=== PATIENT | female | born 1980 | race Caucasian/White ===

== ENCOUNTER 2024-12-01 03:00 | Emergency (ER) | payer MEDICAID, SELFPAY ==
--- NOTE | ~2024-12-01 | XR_ITS ---
CLINICAL HISTORY: pain, atraumatic Exam: AP, Grashey, and scapular Y-views of the right shoulder. Comparison: None provided. Findings: Bony alignment is anatomic without acute fracture, dislocation, or separation. Glenohumeral joint is well-maintained. Likely unfused os acromiale with mild degenerative change of the AC joint. Calcifications measuring up to 6 x 3 mm in size are seen adjacent to the greater tuberosity, likely within the distal rotator cuff. Impression: 1. Calcific tendinitis of the distal rotator cuff. 2. 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 This document has been electronically signed by: Odilon Carmona MD on 12/01/2024 05:40:52
[2024-12-01 03:07] VITALS: BP 129/81; PULSE 68; RESP 20; TEMP 36.7; O2SAT 94; BMI 40.4
--- NOTE | 2024-12-01 04:47 | ECG_ITS ---
Test Reason : SHOULDER PAIN Blood Pressure : */* mmHG Vent. Rate : 58 BPM Atrial Rate : 58 BPM P-R Int : 142 ms QRS Dur : 82 ms QT Int : 426 ms P-R-T Axes : 37 19 24 degrees QTcB Int : 418 ms Sinus bradycardia Otherwise normal ECG No previous ECGs available Referred By: Debbie Granado Electronically Signed By: Guillaume Zeng
--- NOTE | 2024-12-01 05:44 | ED_ITS ---
HPI - Extremity Problem General Chief complaint: Extremity Problem Stated complaint: Shoulder Pain Time Seen by Provider: 12/01/24 03:52 Source: patient and trouble dispatcher Mode of arrival: ambulatory Limitations: language barrier History of Present Illness ED Provider: Dr. Debbie Granado HPI Narrative: 44-year-old female with no significant past medical history presenting after developing right shoulder pain radiating to her right elbow ongoing for the last several days. No reported injury or direct trauma. Had been feeling well prior to this. Denies associated fevers, numbness/tingling/weakness of the hand, skin changes, neck pain, chest pain, difficulty breathing, abdominal pain, nausea or vomiting. Admits that she has had to have shoulder surgery on the other arm previously. No pain in that extremity. Related Data Previous Rx's ?Medication ?Instructions ?Recorded cyclobenzaprine 10 mg tablet 10 mg PO TID #10 tabs 04/15 ibuprofen 600 mg tablet 600 mg PO Q6H PRN fever or p ain 12/01/24 #30 tabs Allergies Allergy/AdvReac Type Severity Reaction Status Date / Time seafood Allergy Anaphylaxis Verified 12/01/24 03:08 acetaminophen (From Percocet) AdvReac Itching Verified 12/01/24 03:08 oxycodone (From Percocet) AdvReac Itching Verified 12/01/24 03:08 Review of Systems Review of Systems: As per HPI, full review of systems performed and negative but for the above ment ioned pertinent positives and negatives. [facility] Past Medical History Attestation statement: The following information was validated with the patient. [facility] Narrative: Patient denies Social History Social History Smoked in Last 30 Days: No Use of substances other than those prescribed or required for medical reasons: No Advance Directives: No Advance Directives Information Provided: Yes Patient : No Physical Exam Vital Signs: Vital Signs: Last Vital Signs Temp 98.1 F 12/01/24 03:07 Pulse 68 12/01/24 03:07 Resp 20 12/01/24 03:07 BP 129/81 12/01/24 03:07 Pulse Ox 94 12/01/24 03:07 O2 Del Method Room Air 12/01/24 03:07 BMI result Body Mass Index 40.4 GENERAL: Well-Appearing, conversant, no acute distress. SKIN: Normal skin color for ethnicity, no rashes noted. HEENT: Normocephalic, atraumatic, no stridor, EOMI. CHEST: Heart regular rate and rhythm, no murmurs, symmetric chest rise and fall. PULMONARY: Clear to auscultation bilaterally, no labored breathing, no wheezes/rhales/rhonchi. ABDOMINAL: Soft, nondistended, nontender, positive bowel sounds in all quadrants. : Deferred. MUSCULOSKELETAL: Normal tone, limited range of motion in the right upper extremity secondary to pain at the proximal right arm, neurovascularly intact distally, full function of the radial, median and ulnar nerves of the right hand, point tender overlying the bursa in the right shoulder, no deformities, no peripheral edema. NEURO: Alert and oriented x3, CN II through XII intact, equal strength and sensation bilateral upper and lower extremities, no focal neurologic deficits. PSYCHIATRIC: Normal affect, fluid speech, good eye contact and appropriate del anor. Medications Administered Discontinued Medications Generic Name Dose Route Start Last Admin Trade Name Freq PRN Reason Stop Dose Admin Diazepam 5 mg 12/01/24 04:47 12/01/24 05:28 Diazepam 5 Mg Tablet PO 12/01/24 04:48 5 mg ONCE ONE Administration Ketorolac Tromethamine 30 mg 12/01/24 04:47 12/01/24 05:28 Ketorolac Tromethamine 30 Mg/Ml Vial IM 12/01/24 04:48 30 mg ONCE ONE Administration Medical Decision Making Medical Decision Making MDM Narrative: Patient presents today with atraumatic right shoulder pain. Differential diagnosis includes nerve pain such as radiculopathy, fracture, soft tissue contusion, ligamentous injury, tendon injury, infection, laceration, among others. Patient is neurovascularly intact upon arrival to the emergency department. Based on physical exam, appropriate imaging was ordered. Differential Diagnosis Differential Diagnoses: The differential diagnosis associated with the presentation includes (As above) Independent Interpretation I performed an independent interpretation of an: EKG Interpretation: My independent interpretation of the ECG reveals normal sinus bradycardia with rate of 58, normal axis, normal intervals, no ST elevations or depressions to suggest ischemic changes, no previous for comparison.. Radiology Impression Discussion of test interpretation with radiology: I have reviewed the radiologist's reading. Radiologist Impression: Exam: AP, Grashey, and scapular Y-views of the right shoulder. Comparison: None provided. Findings: Bony alignment is anatomic without acute fracture, dislocation, or separation. Glenohumeral joint is well-maintained. Likely unfused os acromiale with mild degenerative change of the AC joint. Calcifications measuring up to 6 x 3 mm in size are seen adjacent to the greater tuberosity, likely within the distal rotator cuff. Impression: 1. Calcific tendinitis of the distal rotator cuff. 2. 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 This document has been electronically signed by: Odilon Carmona MD on 12/01/2024 05:40:52 Independent Historian Clinical information obtained from an independent historian. History obtained from or confirmed by: Spouse Prescription Management I considered prescription management with: Pain Medication Discharge Plan Discharge Clinical Impression: Calcific tendinitis of right shoulder, Acute pain of right shoulder Patient Disposition: Home, Self-Care Instructions: Calcific Tendinitis (ED) Additional Instructions: Use muscle relaxers for muscle spasm and cramping. Use Motrin for inflammation. Alternatively, you may use ice to keep inflammation down for the next couple of days. Return to the ER with any new or worsening symptoms including: Worsening pain, fevers greater than 100?, redness that tracks up your skin, inability to tolerate food or drink, any new symptom that concerns you. Call 911 with any medical emergency. Prescriptions: New cyclobenzaprine 10 mg tablet 10 mg PO TID Qty: 10 0RF ibuprofen 600 mg tablet 600 mg PO Q6H PRN (Reason: fever or pain) Qty: 30 0RF Print Language: Brazilian
[2024-12-01 06:06] VITALS: BP 126/70; PULSE 61; RESP 16; TEMP 36.7; O2SAT 98
[2024-12-01 06:12] VITALS: BP 126/70; PULSE 61; RESP 16; TEMP 36.7; O2SAT 98
== END 2024-12-01 06:13 | disposition home or self-care (01) ==
PROVIDERS: Emergency Provider Emergency Medicine
DX: M75.31 Calcific tendinitis of right shoulder (principal); M25.511 Pain in right shoulder
CPT/HCPCS: 73030; 93005; 96372; 99284; 99285; J1885

== ENCOUNTER → 2024-12-01 04:47 | Outpatient (BNV) | payer MEDICAID, SELFPAY | PROVIDERS: Emergency Provider Emergency Medicine; Visit Provider Radiology Diagnostic Radiology | DX: M19.011 Primary osteoarthritis, right shoulder (principal) | CPT/HCPCS: 73030 ==

== ENCOUNTER → 2024-12-01 04:47 | Outpatient (BNV) | payer MEDICAID, SELFPAY | PROVIDERS: Emergency Provider Emergency Medicine; Visit Provider Internal Medicine Cardiovascular Disease | DX: R00.1 Bradycardia, unspecified (principal) | CPT/HCPCS: 93010 ==

== ENCOUNTER 2025-02-02 08:07 | Outpatient (REF) | payer MEDICAID, SELFPAY ==
[2025-02-02 11:31] LABS: MANUAL DIFF FLAG NO
[2025-02-02 11:58] LABS: Hematocrit 41.9 % (37.0-47.0); Hemoglobin 13.7 g/dl (12.0-16.0); Imm Gran Abs Auto 0.04 X10*3/uL (0.00-0.03); Imm Gran Pct Auto 0.4 % (0.0-0.4); Lymphocytes Absolute Auto 4.0 X10*3/uL (1.2-4.9); Mean Corpuscular HGB Conc 32.7 g/dl (31.0-35.0); Mean Corpuscular Hemoglobin 28.5 pg (27.0-33.0); Mean Corpuscular Volume 87.3 fL (80.0-98.0); NRBC Abs Auto 0.000 X10*3/uL (0.0-0.012); NRBC Pct Auto 0.0 /100WBC (0.0-0.2); Platelet Count 288 X10*3/uL (160-400); Red Blood Count 4.80 X10*6/uL (4.20-5.50); White Blood Count 9.1 X10*3/uL (4.8-10.8)
[2025-02-02 12:52] LABS: Alanine Aminotransferase 18 U/L (0-31); Albumin Level 4.3 g/dL (3.5-5.0); Alkaline Phosphatase 110 U/L (39-117); Anion Gap 13 (12-20); Aspartate Amino Transferase 26 U/L (5-31); Blood Urea Nitrogen 18 mg/dL (9-16); Calcium 9.8 mg/dL (8.4-10.2); Carbon Dioxide 27 mmol/L (22-29); Chloride 105 mmol/L (96-108); Estimated Glomerular Filt Rate 54; Potassium 4.1 mmol/L (3.3-5.1); Sodium 141 mmol/L (135-145); Total Protein 7.9 g/dL (6.5-8.0)
[2025-02-03 03:44] LABS: HIV Num 1 0.05 S/CO (0.00-0.99); ~HepC Num1 0.08 S/CO (0.00-0.79); ~Hepatitis C Antibody Nonreactive (Nonreactive)
== END 2025-02-02 08:08 | disposition home or self-care (01) ==
LOC: HO.HHCL 08:07
PROVIDERS: PCP Nurse Practitioner Family; Visit Provider Nurse Practitioner Family
DX: Z00.00 Encounter for general adult medical examination without abnormal findings (principal); Z11.4 Encounter for screening for human immunodeficiency virus [HIV]; Z11.59 Encounter for screening for other viral diseases; I10 Essential (primary) hypertension
CPT/HCPCS: 36415; 80053; 83036; 85025; 86803; 87389

== ENCOUNTER 2025-03-11 13:09 | Outpatient (AMB) | payer MEDICAID, SELFPAY ==
--- NOTE | 2025-03-11 13:19 | HO.NEPHOV_ITS ---
Vital Signs 03/11/25 13:25 Height 5 ft 4 in Weight 227 lb 6 oz BMI 39.0 BP 122/88 Blood Pressure Location Rt brachial Position Sitting Pulse 79 Pulse Source Pulse Oximeter Pulse Oximetry (%) 96 Oxygen Delivery Method Room Air Intake Visit Reasons: ENP Chronic kidne dz Perioperative Educator Required: Yes Perioperative Educator Language: Change Management Facilitator Services: Perioperative Educator Present Perioperative Educator Name: Mukund [id number] Information Interpreted: clinical only Allergies seafood Allergy (Verified 12/01/24 03:08) Anaphylaxis acetaminophen (From Percocet) Adverse Reaction (Verified 12/01/24 03:08) Itching oxycodone (From Percocet) Adverse Reaction (Verified 12/01/24 03:08) Itching Medication List - Last Reconciled 03/11/25 by Steffen Alexandre MD amlodipine 5 mg PO DAILY escitalopram oxalate 10 mg PO DAILY lorazepam 0.5 mg PO DAILY PRN HPI Comments Details: The patient is a 44 year old woman referred for chronic kidney disease. She had abdominal surgery in [place] back in November of 2022. She underwent oophorectomy. Subsequently developed a surgical complication which included right hydronephrosis. Nephrostomy was placed. Acute kidney injury resolved. Ureter has been reimplanted. She had a follow-up renal scan in January of 2024 which revealed significantly delayed decreased renal function on the right side. Recent serum creatinine is 1.1 and has been referred for further renal evaluation. The patient's past medical history is also significant for hypertension, which is reportedly well-controlled with amlodipine, and a history of a bowel obstruction in February. The patient reports a recent weight loss of about 4 pounds. The patient denies any history of thyroid disease or diabetes. Review of systems is negative for urinary complaints such as difficulty with urination or hematuria. The patient also denies any cough or hemoptysis. All medical records from [place] for the last 2 years were reviewed. Perioperative Educator service was used. COUNTS INCLUDE 234 BEDS AT THE [facility] Surgical History (Updated 03/11/25 @ 13:24 by Yahaira Gonzalez MA) History of intestinal surgery History of hysterectomy History of cholecystectomy History of appendectomy H/O shoulder surgery H/O knee surgery History of back surgery Family History (Updated 03/11/25 @ 13:22 by Yahaira Gonzalez MA) Maternal Grandmother Heart disease Hypertension Diabetes mellitus Paternal Grandmother Cancer Paternal Grandfather Cancer Maternal Grandfather Cancer Social History (Updated 03/11/25 @ 13:20 by Yahaira Gonzalez MA) Alcohol intake: never Patient Tobacco Use Status: Never used Tobacco Review of Systems Const Denies fever(s) and Denies weight loss Card Denies chest pain Resp Denies cough and Denies hemoptysis GI Denies abdominal pain, Denies diarrhea and Denies nausea Musc Denies back pain Neuro Denies focal weakness Physical Exam Vital Signs: Last Vital Signs Pulse 79 03/11/25 13:25 BP 122/88 03/11/25 13:25 Pulse Ox 96 03/11/25 13:25 Oxygen Delivery Method Room Air 03/11/25 13:25 BMI result Body Mass Index 39.0 Comfortable Neck supple no JVD. Lungs entry equal no rales. Heart S1-S2 heard no gallop or rub. Abdomen soft nontender. Neuro alert awake oriented. No asterixis. Extremities no edema. Results Reviewed Nephrology Results: Hgb, (12.0-16.0) 13.7 g/dl 02/02/25 WBC, (4.8-10.8) 9.1 X10*3/uL 02/02/25 Plt Count, (160-400) 288 X10*3/uL 02/02/25 Sodium, (135-145) 141 mmol/L 02/02/25 Potassium, (3.3-5.1) 4.1 mmol/L 02/02/25 Chloride, (96-108) 105 mmol/L 02/02/25 Carbon Dioxide, (22-29) 27 mmol/L 02/02/25 BUN, (9-16) 18 mg/dL H 02/02/25 Creatinine, (0.5-1.4) 1.10 mg/dL 02/02/25 Calcium, (8.4-10.2) 9.8 mg/dL 02/02/25 Assessment & Plan Assessment & Plan (1) CKD (chronic kidney disease): Code(s): N18.9 - Chronic kidney disease, unspecified Category: Medical Plan Middle-aged woman with CKD 3 with a baseline creatinine of 1.1 mg/dL in the setting of longstanding hypertension obesity and status post right-sided hydronephrosis due to iatrogenic ureteral obstruction. Status post right ureteral reimplantation. Based on the available data I believe the renal function is at baseline. Blood pressure is well controlled. She appears euvolemic. Recommendations Obtain renal ultrasonogram. Obtain follow-up nuclear renal scan which could be compared with the previous scan done a year ago. Obtain 24 hour urine collection for creatinine clearance. In the meantime encouraged her to stay on low-sodium diet Maintain blood pressure less than 130/80 Continue to avoid nephrotoxic agents including NSAIDs. Further workup will be based on the outcome of the above baseline invest igations. Orders: Orders UA and rflx microscopic Today N18.9 - Chronic kidney disease, unspecified US renal BI Today N18.9 - Chronic kidney disease, unspecified Basic Metabolic Panel Today N18.9 - Chronic kidney disease, unspecified Creatinine Urine Today N18.9 - Chronic kidney disease, unspecified Sodium Urine Random 2 Weeks N18.9 - Chronic kidney disease, unspecified Total Protein Urine Random Today N18.9 - Chronic kidney disease, unspecified Creatinine, 24 Hr Group Today N18.9 - Chronic kidney disease, unspecified Creatinine Clearance Urine 24U Today N18.9 - Chronic kidney disease, unspecified NM renal flow w pharm int Today N18.9 - Chronic kidney disease, unspecified Medications: Discontinued cyclobenzaprine Discontinued Reason: Patient no longer taking 10 mg PO TID 10 tabs 0RF ibuprofen Discontinued Reason: Patient no longer taking 600 mg PO Q6H PRN 30 tabs 0RF fever or pain Patient Instructions: - You will need to get an ultrasound of your kidneys. - You will be given a special container to collect all of your urine for 24 hours. After the collection period is over, bring the container back to the lab. - Eat less salt in your diet and drink plenty of water. - Schedule a follow-up appointment in three weeks to go over your test results. Coding Level of Care Code New Pt Level 5 (72581) Diagnoses CKD (chronic kidney disease) N18.9 Time Spent (min) 50
[2025-03-11 13:25] VITALS: BP 122/88; PULSE 79; O2SAT 96; BMI 39.0
--- OUTSIDE RECORDS SUMMARY | 2025-03-11 18:44 | XMS_ITS | Encounter Summary ---
Author Organization [employer] Address [address] [place] [address] [address] [place] [address] Care Team Providers Care Cook Roast Name Role Phone Elyse Hobbs NP Primary Care Provider [phone] Reason for Visit * Reason Comments Med Refill Encounter Details Date Type Department Care Team ([facility] st Contact Info) Description 02/01/2025 Refill [facility] [address] [place], [place] [id number] Elsye Hobbs NP [address] [place] [address] Social History Tobacco Use Types Packs/Day Years Used Date Smoking Tobacco: Former Cigarettes Passive Smoke Exposure: Past Smokeless Tobacco: Former Depression Answer Date Recorded Patient Health Questionnaire-9 Score 9 02/01/2025 Patient Health Questionnaire-9 Score 9 02/01/2025 Last PHQ-9: Questionnaire Data Not on file 1 Housing Stability Answer Date Recorded What is your housing situation today? I do not have housing (Staying with others, in a hotel, in a penitentiary, living outside on the street, on a beach, in a car, or in a park 02/01/[address] you li ve. Do you have problems with any of the following? None of the above 02/01/2025 Food Insecurity Answer Date Recorded Within the past 12 months, y ou worried that your food would run out before you got money to buy more: Sometimes True 2024 Within the past 12 months,th e food you bought just didn't last and you didn't have enough money to get more: Sometimes True 02/01/2025 Transportation Answer Date Recorded In the past 12 months, has l ack of transportation kept you from medical appts, meetings, work or from getting things needed for daily living? No 02/01/2025 Utilities Answer Date Recorded In the past 12 months, has t he electric, gas, oil or water company threatened to shut off services in your home? No 02/01/2025 Depression Answer Date Recorded Patient Health Questionnaire-2 Score 3 02/01/2025 Internet Access Answer Date Recorded Internet Access Q1 Yes 02/01/2025 Internet Access Q2 Not on file 02/01/2025 Comments Unknown Sex and Gender Information Value Date Recorded Sex Assigned at Female 10/27/2024 2:41 PM EDT Legal Sex Female 3:27 PM EDT Gender Identity Female 10/27/2024 2:41 PM EDT Sexual Orientation Straight 02/01/2025 9: 25 AM EDT documented as of this encounter Functional Status * Over the past 2 weeks, how often have you been bothered by any of the following problems? Question Answer Date of Assessment Author Patient Health Questionnaire -2 Score 3 02/01/2025 11:02 AM EDT Helene Linn MA * Little interest or pleasure in doing things Answer Date of Assessment Author Several days 02/01/2025 11:02 AM EUSEBIAT Helene Linn MA * Feeling down, depressed, or hopeless Answer Date of Assessment Author More than half the days 02/01/2025 11:02 AM EUSEBIAT Helene Linn MA * Trouble falling or staying asleep, or sleeping too much Answer Date of Assessment Author Not at all 02/01/2025 11:02 AM Helene Quinonez MA * Feeling tired or having little energy Answer Date of Assessment Author Several days 02/01/2025 11:02 AM EUSEBIAT Helene Linn MA * Poor appetite or overeating Answer Date of Assessment Author More than half the days 02/01/2025 11:02 AM Helene Quinonez MA * Feeling bad about yourself - or that you are a failure or have let yourself or your family down Answer Date of Assessment Author Nearly every day 02/01/2025 11:02 AM Helene Quinonez MA * Trouble concentrating on things, such as reading the newspaper or watching television Answer Date of Assessment Author Not at all 02/01/2025 11:02 AM Helene Quinonez MA * Moving or speaking so slowly that other people could have noticed? Or the opposite - being so fidgety or restless that you have been moving around a lot more than usual. Answer Date of Assessment Author Not at all 02/01/2025 11:02 AM Helene Quinonez MA * Thoughts that you would be better off or hurting yourself in some way Answer Date of Assessment Author Not at all 02/01/2025 11:02 AM Helene Quinonez MA * Patient Health Questionnaire-9 Score Answer Date of Assessment Author 9 02/01/2025 11:02 AM Helene Quinonez MA * How difficult have these problems made it for you to do your work, take care of things at home, or get along with other people? Answer Date of Assessment Author Somewhat difficult 02/01/2025 11:02 AM Helene Boyer MA * Over the last 2 weeks, how often have you been bothered by any of the following problems? Question Answer Date of Assessment Author Feeling nervous, anxious, or on edge 3 02/01/2025 11:01 AM Helene Quinonez MA Not being able to stop or co ntrol worrying 3 02/01/2025 11:01 AM Helene Quinonez MA Worrying too much about diff erent things 3 02/01/2025 11:01 AM Helene Quinonez MA Trouble relaxing 2 02/01/2025 11:01 AM Helene Quinonez MA Being so restless that it is hard to sit still 0 02/01/2025 11:01 AM Helene Quinonez MA Becoming easily annoyed or irritable 3 02/01/2025 11:01 AM Helene Quinonez MA Feeling afraid as if somethi ng awful might happen 3 02/01/2025 11:01 AM Helene Quinonez MA ARMANI-7 Total Score 17 02/01/2025 11:01 AM EDT Helene Linn MA documented as of this encounter Plan of Treatment Upcoming Encounters Date Type Department Care Team (Late st Contact Info) Description 04/05/2025 11:15 AM EST Office Visit [facility] [address] [place] [address] Elyse Hobbs NP [address] [place] [address] documented as of this encounter Visit Diagnoses Not on filedocumented in this encounter Additional Health Concerns Assessment Noted Time PHQ-9 Depression Total Score: 9 02/02/20 11:02 AM EDT documented as of this encounter Care Teams Cook Roast Relationship Specialty Start Date End Date Elyse Hobbs NP [address] [place] [address] PCP - General Family Medicine 02/01/25 documented as of this encounter
--- OUTSIDE RECORDS SUMMARY | 2025-03-11 18:44 | XMS_ITS | Clinical Summary ---
Author Organization [facility] [employer] Address [address] [place] [address] [address] [place] [address] Care Team Providers Care Project Engineer Name Role Phone Elyse Hobbs GIN Primary Care Provider [phone] Allergies Active Allergy Reactions Criticality Noted Date Comments Oxycodone-Acetaminophen Itching 02/01/2025 Shellfish Allergy Itching 02/01/2025 Medications amLODIPine (Norvasc) 5 MG tabletIndicatio ns:Hypertension , unspecified type Take 1 tablet (5 mg) by mouth Once per day. 90 tablet 1 02/02/20 25 026 Active LORazepam (Ativan) 0.5 MG tablet Take 1 tablet (0.5 mg) by mouth Once daily as needed for anxiety for up to 7 days. 7 tablet 02/02/20 25 Active escitalopram (Lexapro) 10 MG tablet Take 1 tablet (10 mg) by mouth Once per day. 30 tablet 1 5 2:01 PM EST 03/03/20 25 026 Active escitalopram (Lexapro) 10 MG tablet Take 0.5 tablets (5 mg) by mouth Once per day for 7 days, THEN 1 tablet (10 mg) Once per day for 23 days. 27 tablet 02/02/20 25 025 Discontinued(Re order (will not trigger notification to Pharmacy)) Active Problems Problem Noted Date Diagnosed Date Other fatigue 02/01/2025 Assessment & Plan (02/01/2025 6:53 PM EDT): Orders: Referral to Sleep Medicine; Future Class 3 severe obesity with serious comorbidity and body mass index (BMI) of 40.0 to 44.9 in adult 02/01/2025 Assessment & Plan (02/01/2025 6:53 PM EDT): Healthcare maintenance 02/01/2025 Assessment & Plan (02/01/2025 6:53 PM EDT): Orders: HIV-1/2 Antigen and Antibodies, Fourth Generation, with Reflexes; Future Hepatitis C Antibody with Reflex to HCV, RNA, Quantitative, Real-Time PCR; Future Breast cancer screening by mammogram 02/01/2025 Assessment & Plan (02/01/2025 6:53 PM EDT): Orders: BI Mammogram Screening Tomosynthesis Bilateral; Future Encounters Date Type Department Care Team Description 03/03/2025 Telephone [facility] [address] [place] [phone] Elyse Hobbs NP Med Refill 02/01/2025 9:45 AM EDT Office Visit [address] [address] Elyse Hobbs NP Colon cancer screening (Primary Dx); Stage 3a chronic kidney disease (CMS/HCC) (HCC); Hypertension, unspecified type; Moderate episode of recurrent major depressive disorder (CMS/HCC) (HCC); Breast cancer screening by mammogram; Healthcare maintenance; Class 3 severe obesity with serious comorbidity and body mass index (BMI) of 40.0 to 44.9 in adult, unspecified obesity type (HCC); Other fatigue; Dietary counseling; Exercise counseling 02/01/[address] [address] Elyse Hobbs NP 02/01/2025 Travel 01/25/2025 Patient Outreach [facility] [address] [place], [place] [phone] Elyse Hobbs NP Pre-visit Planning (NDOH unable to reach M ) 12/23/2024 Population Health Risk Score [facility] [address] [phone] Provider, Population Health Generic from Last 3 Months Social History Tobacco Use Types Packs/Day Years Used Date Smoking Tobacco: Former Cigarettes Passive Smoke Exposure: Past Smokeless Tobacco: Former Tobacco Cessation:Counseling Given: Not Answered Depression Answer Date Recorded Patient Health Questionnaire-9 Score 9 02/01/2025 Patient Health Questionnaire-9 Score 9 02/01/2025 Last PHQ-9: Questionnaire Data Not on file 1 Housing Stability Answer Date Recorded What is your housing situation today? I do not have housing (Staying with others, in a hotel, in a snf, living outside on the street, on a [...] Orientation Straight 02/01/2025 9: 25 AM EDT Last Filed Vital Signs Vital Sign Reading Time Taken Comments Blood Pressure 140/98 02/01/2025 9:37 AM EDT Pulse 82 02/01/2025 9:37 AM EDT Temperature 36.7 C (98 F) 02/01/2025 9:37 AM EDT Respiratory Rate 16 02/01/2025 9:37 AM EDT Oxygen Saturation 96% 02/01/2025 9:37 AM EDT Inhaled Oxygen Concentration - - Weight 104 kg (229 lb) 02/01/2025 9:37 AM EDT Height 159.5 cm (5' 2.8 ) 02/01/2025 9:37 AM EDT Body Mass Index 40.83 02/01/2025 9:37 AM EDT Plan of Treatment Upcoming Encounters Date Type Department Care Team (Late st Contact Info) Description 04/05/2025 11:15 AM EST Office Visit [facility] [address] [place], [place] [phone] Elyse Hobbs NP [address] [place], [place] [phone] Health Maintenance Due Date Last Done Comments CT Colonography 1979 Colonoscopy 1979 Colorectal Cancer Screening 1979 FIT DNA/Cologuard 1979 FIT 1979 FOBT 1979 Lipid Panel 1979 Sigmoidoscopy 1979 Family Planning (PISQ) 09/27/1994 HPV Vaccines (1 - 3-dose series) 09/27/1994 DTaP/Tdap/Td Vaccines (1 - Tdap) 09/27/1998 Hepatitis B Vaccines (1 of 3 - 19+ 3-dose series) 09/27/1998 Pap Smear 09/27/2000 Cervical Cancer Screening 09/27/2009 HPV/Cotest 09/27/2009 Mammogram 2019 COVID-19 Vaccine ( - 2024-2 6 season) 2024 Influenza Vaccine (#1) 2024 Depression Monitoring 08/02/2025 02/01/2025 , 02/01/2025 Alcohol/Substance Use Screening 02/01/2026 02/01/2025 Disability Screening 02/01/2026 02/01/2025 SDOH Screening 02/01/2026 02/01/2025 Tobacco Screening 02/01/2026 02/01/2025 Diabetes: Hemoglobin A1C 02/02/2026 02/02/2025 Zoster Vaccines (1 of 2) 09/27/2029 RSV Patients and Patients Aged 60 years or older (1 - 1-dose 75+ series) 09/27/2054 HIV Screening Completed 02/02/2025 Hepatitis C Screening Completed 02/02/2025 HIB Vaccines Aged Out No longer eligi ble based on patient's age to complete this topic Hepatitis A Vaccines Aged Out No long er eligible based on patient's age to complete this topic IPV Vaccines Aged Out No longer eligi ble based on patient's age to complete this topic Meningococcal B Vaccine Aged Out No l onger eligible based on patient's age to complete this topic Meningococcal Vaccine Aged Out No sheree carissa eligible based on patient's age to complete this topic Pneumococcal Vaccine: Pediatrics (0 to 5 Years) and At-Risk Patients (6 to 49) Years Aged Out No longer eligible b ased on patient's age to complete this topic RSV under 20 months Aged Out No longe r eligible based on patient's age to complete this topic Rotavirus Vaccines Aged Out No longer eligible based on patient's age to complete this topic Procedures Procedure Name Priority Date/Time Associated Diagnosis Comments HEPATITIS C AB W/REFL TO HCV RNA, QN, PCR Routine 02/02/2025 8:15 AM EDT Healthcare maintenance HIV 1/2 ANTIGEN/ANTIBODY, FOURTH GENERATION W/RFL Routine 02/02/2025 8:15 AM EDT Healthcare maintenance CBC WITH AUTO DIFFERENTIAL Routine 02/02/2025 8:15 AM EDT Hypertension, unspecified type HEMOGLOBIN A1C Routine 02/02/2025 8:15 AM EDT Hypertension, unspecified type COMPREHENSIVE METABOLIC PANEL Routine 02/02/2025 8:15 AM EDT Hypertension, unspecified type from Last 3 Months Results * (ABNORMAL) CBC auto differential (02/02/2025 8:15 AM EDT) White Blood Count 9.1 4.8 - 10.8 X10*3/uL [facility] Red Blood Count 4.80 4.20 - 5.50 X10*6/uL [facility] Hemoglobin 13.7 12.0 - 16.0 g/dl [facility] Hematocrit 41.9 37.0 - 47.0 % [facility] Mean Corpuscular Volume 87.3 80.0 - 98.0 fL [facility] Mean Corpuscular Hemoglobin 28.5 27.0 - 33.0 pg [facility] Mean Corpuscular HGB Conc 32.7 31.0 - 35.0 g/dl [facility] Red Cell Distribution Width 13.4 11.0 - 16.0 % [facility] Platelet Count 288 160 - 400 X10*3/uL [facility] Mean Platelet Volume 10.1 9.4 - 12.3 fL [facility] Neutrophils Percent Auto 46.7 45 - 73 % [facility] Imm Gran Pct Auto 0.4 0.0 - 0.4 % [facility] Lymphocytes Percent Auto 43.7(H) 20 - 40 % [facility] Monocytes Percent Auto 4.5 2 - 11 % [facility] Eosinophils Percent Auto 4.4(H) 0 - 4 % [facility] Basophils Percent Auto 0.3 0 - 2 % [facility] NRBC Pct Auto 0.0 0.0 - 0.2 /100WBC [facility] Neutrophils Absolute Auto 4.2 2.0 - 8.3 x10*3/uL [facility] Imm Gran Abs Auto 0.04(H) 0.00 - 0.03 X10*3/uL [facility] Lymphocytes Absolute Auto 4.0 1.2 - 4.9 X10*3/uL [facility] Monocytes Absolute Auto 0.4 0.1 - 1.2 X10*3/uL [facility] Eosinophils Absolute Auto 0.4 0.0 - 0.4 X10*3/uL [facility] Basophils Absolute Auto 0.0 0.0 - 0.2 X10*3/uL [facility] NRBC Abs Auto 0.000 0.0 - 0.012 X10*3/uL [facility] Blood Venous blood specimen / Unknown 02/02/2025 8:15 AM EDT 02/02/2025 11:25 AM EDT Elyse Hobbs NP LAB BLOOD ORDERABLES Final Resul t Performing Organization Address [facility]/ZIP Co de Phone Number [facility] [address] [place] [phone] * Hepatitis C Antibody with Reflex to HCV, RNA, Quantitative, Real-Time PCR (02/02/2025 8:15 AM EDT) Hepatitis C Antibody Nonreactive Nonreactive [facility] Comment:Antibodies to HCV no t detected; does not exclude early acuteHCV infection. Blood Venous blood specimen / Unknown 02/02/2025 8:15 AM EDT 02/02/2025 11:25 AM EDT Elyse Hobbs NP LAB BLOOD ORDERABLES Final Resul t Performing Organization Address [facility] Co de Phone Number [facility] [address] [place] [phone] * HIV-1/2 Antigen and Antibodies, Fourth Generation, with Reflexes (02/02/2025 8:15 AM EDT) HIV AB/AG Nonreactive Nonreactive [facility] Comment:HIV-1 p24 Ag and/or HIV-1/HIV-2 Ab not detected.A test result that is nonreactive does not exclude thepossibility of exposure to or infection with HIV-1 and/orHIV-2. Nonreactive results in this assay for individualswith prior exposure to HIV-1 and/or HIV-2 may be due toantigen and antibody levels that are below the limit ofdetection of this assay.The [employer] HIV Ag/Ab Combo assay result andsupplemental assay results should be interpreted inconjunction with the patient's clinical presentation,history and other laboratory results. If the results areinconsistent with clinical evidence, additional testing issuggested to confirm the result. Blood Venous blood specimen / Unknown 02/02/2025 8:15 AM EDT 02/02/2025 11:25 AM EDT us Elyse Hobbs ACCOUNT CONTACT ASSOCIATE LAB BLOOD ORDERABLES Final Resul t Performing Organization Address [facility] Co de Phone Number [facility] [address] [place] [phone] * Hemoglobin A1c (02/02/2025 8:15 AM EDT) Hemoglobin A1c 5.7 <6.0 % [facility] Comment:Hemoglobin A1C Refer ence Range Adults: 4.8 - 6.0 % Non diabetic: < 6.0 % Goal: < 7.0 %Additional Action Suggested: > 8.0 %Note: Hemoglobin A1c results are invalid for patients with abnormal amounts of HbF. Blood transfusions may impact the HbA1c concentration in the patient sample. Estimated Average Glucose 117 mg/dL [facility] Comment:eAG = Estimated ave rage glucose which is %A1C expressed asaverage glucose, using the formula of the E9C-WvakzdxAzhbezf Glucose study (ADAG), Diabetes Care, Vol.31,#8,Nov. 2007 Blood Venous blood specimen / Unknown 02/02/2025 8:15 AM EDT 02/02/2025 11:25 AM EDT Elyse Hobbs ACCOUNT CONTACT ASSOCIATE LAB BLOOD ORDERABLES Final Resul t Performing Organization Address [facility] de Phone Number [facility] [address] [place] [phone] * (ABNORMAL) Comprehensive Metabolic Panel (02/02/2025 8:15 AM EDT) Sodium 141 135 - 145 mmol/L [facility] Potassium 4.1 3.3 - 5.1 mmol/L [facility] Chloride 105 96 - 108 mmol/L [facility] Carbon Dioxide 27 22 - 29 mmol/L [facility] Anion Gap 13 12 - 20 [facility] Urea Nitrogen (BUN) 18(H) 9 - 16 mg/dL [facility] Creatinine, Serum 1.10 0.5 - 1.4 mg/dL [facility] Estimated Glomerular Filt Rate 54 [facility] Comment:Chronic Kidney Disea se: Estimated GFR < 60 mL/min/1.84u2Pkndxl Kidney Disease: Estimated GFR < 15 mL/min/1.73m2 Glucose 85 60 - 115 mg/dL [facility] Calcium 9.8 8.4 - 10.2 mg/dL [facility] Bilirubin, Total 0.4 0.0 - 1.0 mg/dL [facility] Aspartate Amino Transferase 26 5 - 31 U/L [facility] Alanine Aminotransferase 18 0 - 31 U/L [facility] Total Protein 7.9 6.5 - 8.0 g/dL [facility] Albumin Level 4.3 3.5 - 5.0 g/dL [facility] Alkaline Phosphatase 110 39 - 117 U/L [facility] Blood Venous blood specimen / Unknown 02/02/2025 8:15 AM EDT 02/02/2025 11:25 AM EDT Elyse Hobbs NP LAB BLOOD ORDERABLES Final Resul t [facility] [address] [place] [phone] from Last 3 Months Insurance [facility] C[employer] Care Teams Project Engineer Relationship Specialty Start Date End Date Elyse Hobbs NP [address] [place] [phone] PCP - General Family Medicine 02/01/25
== END 2025-03-11 13:49 | disposition home or self-care (01) ==
LOC: HO.HKA 13:10
PROVIDERS: PCP Nurse Practitioner Family; Visit Provider Internal Medicine Hypertension Specialist
DX: N18.9 Chronic kidney disease, unspecified (principal)
CPT/HCPCS: 99204

== ENCOUNTER → 2025-03-11 13:09 | Outpatient (BNVA) | payer MEDICAID, SELFPAY | PROVIDERS: PCP Nurse Practitioner Family; Visit Provider Internal Medicine Hypertension Specialist | DX: N18.30 Chronic kidney disease, stage 3 unspecified (principal); I10 Essential (primary) hypertension; E66.9 Obesity, unspecified | CPT/HCPCS: 99202 ==

== ENCOUNTER 2025-03-30 08:37 | Outpatient (REF) | payer MEDICAID, SELFPAY ==
[2025-03-30 12:33] LABS: Appearance Urine Cloudy; Glucose Urine UA Negative (Negative); PH 5.5 (5.0-9.0); Specific Gravity - Urine 1.020 (1.005-1.025); UMIC TRIGGER UA YES
[2025-03-30 13:34] LABS: Total Protein Urine Random 16 mg/dL (<12)
== END 2025-03-30 08:38 ==
LOC: HO.LNP 08:37
PROVIDERS: Visit Provider Internal Medicine Hypertension Specialist
DX: N18.9 Chronic kidney disease, unspecified (principal)
CPT/HCPCS: 81001; 84156; 84300

== ENCOUNTER 2025-03-31 07:57 | Outpatient (REF) | payer MEDICAID, SELFPAY ==
[2025-03-31 09:22] LABS: Creatinine, mg/dL 123.52
[2025-03-31 09:25] LABS: Anion Gap 12 (12-20); Blood Urea Nitrogen 17 mg/dL (9-16); Calcium 9.6 mg/dL (8.4-10.2); Carbon Dioxide 25 mmol/L (22-29); Chloride 107 mmol/L (96-108); Estimated Glomerular Filt Rate 57; Potassium 4.2 mmol/L (3.3-5.1); Sodium 140 mmol/L (135-145)
[2025-03-31 10:28] LABS: Total Volume 24 Hour Urine 1100 mL
[2025-03-31 12:16] LABS: Creatinine (CrCl) 1.04 mg/dL (0.5-1.4)
== END 2025-03-31 07:58 ==
LOC: HO.LAB 07:57
PROVIDERS: PCP Nurse Practitioner Family; Visit Provider Internal Medicine Hypertension Specialist
DX: N18.9 Chronic kidney disease, unspecified (principal)
CPT/HCPCS: 36415; 80048; 82575

== ENCOUNTER 2025-04-05 08:54 | Outpatient (REF) | payer MEDICAID, SELFPAY ==
--- NOTE | ~2025-04-05 | US_ITS ---
CLINICAL HISTORY: N18.9 - Chronic kidney disease, unspecified Ultrasound kidneys. COMPARISON: None provided. Technique: Real time sonographic imaging, including color-flow imaging, was performed by the protective service specialist. Multiple loan representative static images were saved for review. FINDINGS: Right kidney: Severe right-sided hydronephrosis with associated cortical thinning. No calculus or focal parenchymal abnormality identified. Right kidney size: 12.8 x 7.1 x 4.6 cm Left kidney: Cortical medullary differentiation is maintained. No calculus or focal parenchymal abnormality identified. No hydronephrosis. Left kidney size: 11.8 x 5.8 x 4.6 cm The urinary bladder contracted. Left ureteral jet identified. Right ureteral jet was not identified. IMPRESSION: 1. Severe right hydronephrosis with associated cortical thinning. Right ureteral jet was not identified. 2. Unremarkable appearance of the left kidney. This document has been electronically signed by: Vel Lopez MD on 04/05/2025 16:08:35
== END 2025-04-05 08:55 | disposition home or self-care (01) ==
LOC: HO.US 08:54
PROVIDERS: PCP Nurse Practitioner Family; Visit Provider Internal Medicine Hypertension Specialist
DX: N18.9 Chronic kidney disease, unspecified (principal)
CPT/HCPCS: 76775

== ENCOUNTER → 2025-04-05 08:58 | Outpatient (BNV) | payer MEDICAID, SELFPAY | PROVIDERS: PCP Nurse Practitioner Family; Visit Provider Radiology Diagnostic Radiology | DX: N18.9 Chronic kidney disease, unspecified (principal); N13.30 Unspecified hydronephrosis | CPT/HCPCS: 76775 ==

== ENCOUNTER → 2025-04-06 10:01 | Outpatient (REF) | payer MEDICAID, SELFPAY ==
--- OUTSIDE RECORDS SUMMARY | 2025-04-05 11:15 | XMS_ITS | Encounter Summary ---
Author Organization [employer] Address [address] [place] [address] [address] [address] Care Team Providers Care Investment Consultant Name Role Phone Elyse Hobbs NP Primary Care Provider [phone] Reason for Referral * Consultation (Routine) - Authorized Specialty Diagnoses / Procedures Referred By Juancho van Referred To Contact Orthopaedic Surgery Diagnoses Chronic pain of right knee Elyse Hobbs NP [address] [place] [address] Phone: tel: fax: [facility] [address] [place] [address] [place] [phone] Phone: tel: Referral ID Status Reason Start Date Expiration Date Visits Requested Visits Authorized [id number] Authorized Specialty Services Required 04/05/2026 6 6 * Consultation (Routine) - Closed Specialty Diagnoses / Procedures Referred By Juancho van Referred To Contact Physical Therapy Diagnoses Chronic pain of right knee Elyse Hobbs NP [address] [place] [address] Phone: tel: fax: [facility] [address] [place] [address] Phone: tel: fax: Referral ID Status Reason Start Date Expiration Date V isits Requested Visits Authorized [id number] Closed Specialty Services Required 04/05/2025 04/05/2026 20 20 * Consultation (Routine) - Closed Specialty Diagnoses / Procedures Referred By Juancho van Referred To Contact Allergy Diagnoses Allergy to peanuts Elyse Hobbs NP [address] [place] [address] Phone: tel: fax: Ronald Powell MD [address] [place] [address] [address] [place] [address] Phone: tel: fax: Referral ID Status Reason Start Date Expiration Date V isits Requested Visits Authorized [id number] Closed Specialty Services Required 04/05/2025 04/05/2026 12 12 Encounter Details Date Type Department Care Team ([facility] st Contact Info) Description 04/05/2025 11:15 AM EST Office Visit [facility] [address] [place] [address] Elyse Hobbs NP [address] [place] [address] Stage 3a chronic kidney disease (CMS/HCC) (HCC) (Primary Dx); Anxiety; Seasonal allergic rhinitis due to other allergic trigger; Allergy to peanuts; Chronic pain of right knee Social History Tobacco Use Types Packs/Day Years [...] with others, in a hotel, in a correction, living outside on the street, on a [...] AM EDT documented as of this encounter Last Filed Vital Signs Vital Sign Reading Time Taken Comments Blood Pressure 138/80 04/05/2025 11:22 AM EST Pulse 69 04/05/2025 11:22 AM EST Temperature 36.4 C (97.6 F) 04/05/2025 11:22 AM EST Respiratory Rate 17 04/05/2025 11:22 AM EST Oxygen Saturation 98% 04/05/2025 11:22 AM EST Inhaled Oxygen Concentration - - Weight 104 kg (228 lb 6.4 oz) 04/05/2025 11:22 A M EST Height 162.6 cm (5' 4 ) 04/05/2025 11:22 AM EST Body Mass Index 39.2 04/05/2025 11:22 AM EST documented in this encounter Progress Notes * Elyse Hobbs NP - 04/05/2025 11:15 AM EST Shavon Riley, 44-year-old female - Started Lexapro previously for mental health, reports improvement, no side effects - History of chronic kidney disease, stable per recent renal visit on March 11, 2025 - Reports nasal pain and congestion with mucus since onset of cold weather, denies preceding cold - Right knee pain, worsened by climbing stairs, described as rubbing, clicking, and pressure sensation, no history of injury, symptoms exacerbated by cold weather - Peanut allergy since daughter???s , recurrence of allergic reaction two weeks ago after peanut butter ingestion, history of significant weight loss during initial allergy period Problem List[1] Medical History[2] Allergies[3] Review of Systems Constitutional: Negative for activity change and appetite change. HENT: Positive for postnasal drip, rhinorrhea and sinus pain. BP 138/80 (BP Location: Right arm, Patient Position: Sitting, BP Cuff Size: Adult) Pulse 69 Temp 97.6 ??F (36.4 ??C) (Oral) Resp 17 Ht 5' 4 (1.626 m) Wt 228 lb 6.4 oz (104 kg) SpO2 98% BMI 39.20 kg/m?? Physical Exam Vitals reviewed. Constitutional: Appearance: She is obese. HENT: Head: Normocephalic and atraumatic. Nose: Nose normal. Eyes: Conjunctiva/sclera: Conjunctivae normal. Cardiovascular: Rate and Rhythm: Normal rate and regular rhythm. Pulmonary: Effort: Pulmonary effort is normal. Breath sounds: Normal breath sounds. Musculoskeletal: Cervical back: Normal range of motion and neck supple. Neurological: General: No focal deficit present. Mental Status: She is alert. - HEENT: Examination revealed nasal congestion. - CARDIOVASCULAR: Blood pressure is noted to be improved. - MUSCULOSKELETAL: Right knee pain reported, with crepitus noted. Results: Orders Only on 03/31/2025 Component Date Value Ref Range Status Creatinine, Serum 03/31/2025 1.04 0.5 - 1.4 mg/dL Final Creatinine Clearance 03/31/2025 90.7 85 - 125 mL/min Final Creatinine, 24 Hour Urine 03/31/2025 1.4 1.0 - 2.0 G/Day Final Creatinine, Urine 03/31/2025 123.52 Final Urine Total Volume 24 Hour 03/31/2025 1,100 mL Final Sodium 03/31/2025 140 135 - 145 mmol/L Final Potassium 03/31/2025 4.2 3.3 - 5.1 mmol/L Final Chloride 03/31/2025 107 96 - 108 mmol/L Final Carbon Dioxide 03/31/2025 25 22 - 29 mmol/L Final Anion Gap 03/31/2025 12 12 - 20 Final Urea Nitrogen (BUN) 03/31/2025 17 (H) 9 - 16 mg/dL Final Creatinine, Serum 03/31/2025 1.04 0.5 - 1.4 mg/dL Final Estimated Glomerular Filt Rate 03/31/2025 57 Final Chronic Kidney Disease: Estimated GFR < 60 mL/min/[id number] Kidney Disease: Estimated GFR < 15 mL/min/1.73m2 Glucose 03/31/2025 91 60 - 115 mg/dL Final Calcium 03/31/2025 9.6 8.4 - 10.2 mg/dL Final Assessment & Plan Stage 3a chronic kidney disease ([facility]) ([facility]) Orders: Lipid Panel, Standard; Future Anxiety Seasonal allergic rhinitis due to other allergic trigger Allergy to peanuts Orders: Referral to Allergy; Future Chronic pain of right knee Orders: Referral to Physical Therapy; Future Referral to Orthopaedic Surgery; Future Assessment & Plan Stage 3a chronic kidney disease ([facility]) ([facility]): - Stable chronic kidney disease. Need to avoid nephrotoxic medications such as ibuprofen. - Advised to inform all prescribers about kidney condition. Continue monitoring renal function. No changes to current management. Anxiety: - Anxiety well controlled on Lexapro. No significant side effects reported. - Prescribed Lexapro refills. Seasonal allergic rhinitis due to other allergic trigger: - Seasonal allergic rhinitis likely triggered by environmental factors. - Prescribed Flonase nasal spray for daily use. Advised to increase water intake to help thin mucus. Instructed to follow up if symptoms worsen or do not improve. Allergy to peanuts: - Peanut allergy with recent reaction after peanut butter ingestion. - Prescribed EpiPen. Advised strict avoidance of peanuts. Referral to welding teacher placed. Chronic pain of right knee: - Chronic right knee pain, possibly related to meniscus or cartilage pathology. - Referral to orthopedics for further evaluation. Physical therapy discussed as part of management.Instructed to report worsening symptoms. Hyperlipidemia screening: - Ordered cholesterol labs. Prescription - Escitalopram (Lexapro) refill, daily - Fluticasone propionate nasal spray (Flonase), daily - Epinephrine auto-injector (EpiPen) for peanut allergy; avoid peanuts Appointments - Referral to welding teacher - Referral to orthopedic knee specialist - Referral to physical therapy Current Medications[4] Based on our discussion, I have outlined the following instructions for you: - Do not take medications that can harm the kidneys, such as ibuprofen. - Tell every healthcare prescriber that you have chronic kidney disease. - Keep getting your kidney function checked as planned. - Take your Lexapro refills as prescribed. - Use Flonase nasal spray every day as prescribed. - Drink more water to help thin your mucus. - Strictly avoid peanuts. - Keep your prescribed EpiPen with you and use it for a severe allergic reaction. - Contact the clinic if your symptoms get worse or if they do not improve. Next appointment(s): - Referral to welding teacher - Referral to orthopedic knee specialist - Referral to physical therapy This note was drafted using Ambient (AI) technology. The patient/patient's guardian has been informed and has consented to the use of this technology: Yes Visit Conducted in: [place] Translation by: Patient is bilingual and declines translation services [1] Patient Active Problem List Diagnosis Other fatigue Class 3 severe obesity with serious comorbidity and body mass index (BMI) of 40.0 to 44.9 in adult ([facility]) Healthcare maintenance Breast cancer screening by mammogram Stage 3a chronic kidney disease ([facility]) ([facility]) Anxiety Seasonal allergic rhinitis Allergy to peanuts Chronic pain of right knee [2] No past medical history on file. [3] Allergies Allergen Reactions Percocet [Oxycodone-Acetaminophen] Itching Seafood [Shellfish Allergy] Itching [4] Current Outpatient Medications: amLODIPine (Norvasc) 5 MG tablet, Take 1 tablet (5 mg) by mouth Once per day., Disp: 90 tablet, Rfl: 1 EPINEPHrine (Epipen) 0.3 MG/0.3ML injection syringe, Inject 0.3 mL (0.3 mg) as directed 1 (one) time. use as directed for allergic reaction and then call 911, Disp: 1 each, Rfl: 2 escitalopram (Lexapro) 10 MG tablet, Take 1 tablet (10 mg) by mouth Once per day., Disp: 30 tablet,Rfl: 2 fluticasone (Flonase) 50 MCG/ACT nasal spray, Administer 1-2 sprays into each nostril Once per day.Shake gently. Before first use, prime pump. After use, clean tip and replace cap., Disp: 16 g, Rfl:0 LORazepam (Ativan) 0.5 MG tablet, Take 1 tablet (0.5 mg) by mouth Once daily as needed for anxiety for up to 7 days., Disp: 7 tablet, Rfl: 0 documented in this encounter Miscellaneous Notes * Assessment & Plan Note - Elyse Hobbs NP - 04/05/2025 11:15 AM ESTAssociated Problem(s): Stage 3a chronic kidney disease (CMS/HCC) (HCC) Orders: Lipid Panel, Standard; Future * Assessment & Plan Note - Elyse Hobbs NP - 04/05/2025 11:15 AM ESTAssociated Problem(s): Anxiety * Assessment & Plan Note - Elyse Hobbs NP - 04/05/2025 11:15 AM ESTAssociated Problem(s): Seasonal allergic rhinitis * Assessment & Plan Note - Elyse Hobbs NP - 04/05/2025 11:15 AM ESTAssociated Problem(s): Allergy to peanuts Orders: Referral to Allergy; Future * Assessment & Plan Note - Elyse Hobbs NP - 04/05/2025 11:15 AM ESTAssociated Problem(s): Chronic pain of right knee Orders: Referral to Physical Therapy; Future Referral to Orthopaedic Surgery; Future documented in this encounter Plan of Treatment Scheduled Orders Name Type Priority Associated Diagnoses Orde r Schedule Lipid Panel, Standard Lab Routine Stage 3a chronic kidney disease (CMS/HCC) (HCC) Expected: 04/05/2025 (Approximate), Expires: 04/05/2026 Scheduled Referrals Name Type Priority Associated Diagnoses Order Schedule Referral to Allergy Outpatient Referral Routine Allergy to peanuts Expected: 04/05/2025 (Approximate), Expires: 04/05/2026 Referral to Physical Therapy Outpatient Referral Routine Chronic pain of right knee Expected: 04/05/2025 (Approximate), Expires: 04/05/2026 Referral to Orthopaedic Surgery Outpatient Referral Routine Chronic pain of right knee Expected: 04/05/2025 (Approximate), Expires: 04/05/2026 documented as of this encounter Visit Diagnoses Diagnosis Stage 3a chronic kidney disease ([facility]) (HCC)- Primary Anxiety Anxiety state, unspecified Seasonal allergic rhinitis due to other allergic trigger Allergy to peanuts Chronic pain of right knee documented in this encounter Additional Health Concerns Assessment Noted Time PHQ-9 Depression Total Score: 9 02/02/20 11:02 AM EDT documented as of this encounter Care Teams Investment Consultant Relationship Specialty Start Date End Date Elyse Hobbs NP [address] [place] [id number] PCP - General Family Medicine 02/01/25 documented as of this encounter
--- NOTE | ~2025-04-06 | NM_ITS ---
EXAMINATION: NM KIDNEY FLOW FUNCTION WITH RX HISTORY: N18.9 - Chronic kidney disease, unspecified. TECHNIQUE: A renogram and renal scan were performed following the intravenous administration of 10 mCi technetium 99m-DTPA. The patient received 40 mg IV Lasix approximately 30 minutes after injection of the radiopharmaceutical. COMPARISON: Comparison is made with the prior outside examination from [place] dated 02/03/2024. FINDINGS: There is normal blood flow to the left kidney. No activity is seen in the right renal fossa on blood flow images. There is normal uptake of the radiopharmaceutical by the left kidney, and normal excretion into the collecting system. There is washout of the left collecting system after Lasix administration with a half-life of 28 minutes. No significant uptake or excretion of the radiopharmaceutical is seen on the right. NM/NM renal flow w pharm int IMPRESSION: Normally functioning left kidney. There is no uptake or excretion of the radiopharmaceutical on the right, consistent with a nonfunctioning kidney. Electronically signed by: Sonido Clements MD 04/06/2025 12:53 PM YUAN
--- OUTSIDE RECORDS SUMMARY | 2025-04-06 12:15 | XMS_ITS | Encounter Summary ---
Author Organization [employer] Address [address] [facility] [address] [place] [address] Care Team Providers Care Federal Aid Coordinator Name Role Phone Elyse Hobbs GIN Primary Care Provider [phone] Encounter Details Date Type Department Care Team (Latest Contact Info) Description 04/05/2025 Travel Social History Tobacco Use Types Packs/Day Years [...] with others, in a hotel, in a fci, living outside on the street, on a [...] AM EDT documented as of this encounter Plan of Treatment Not on file documented as of this encounter Visit Diagnoses Not on filedocumented in this encounter Additional Health Concerns Assessment Noted Time PHQ-9 Depression Total Score: 9 02/02/20 11:02 AM EDT documented as of this encounter Care Teams Federal Aid Coordinator Relationship Specialty Start Date End Date Elyse Hobbs NP [address] [place] [address] PCP - General Family Medicine 02/01/25 documented as of this encounter
--- OUTSIDE RECORDS SUMMARY | 2025-04-06 12:15 | XMS_ITS | Encounter Summary ---
Author Organization [employer] Address [address] [facility] [address] [place] [address] Care Team Providers Care Foam Machine Operator Name Role Phone Elyse Hobbs NP Primary Care Provider Reason for Visit * Reason Comments Med Refill Encounter Details Date Type Department Care Team ([facility] st Contact Info) Description 02/01/2025 Refill [facility] [address] [place], [place] [phone] Elyse Hobbs NP [address] [place] [address] Social History Tobacco Use Types Packs/Day Years [...] with others, in a hotel, in a jail, living outside on the street, on a [...] documented as of this encounter Care Teams Foam Machine Operator Relationship Specialty Start Date End Date Elyse Hobbs NP [address] [place] [address] PCP - General Family Medicine 02/01/25 documented as of this encounter
--- OUTSIDE RECORDS SUMMARY | 2025-04-06 12:15 | XMS_ITS | Clinical Summary ---
Author Organization [employer] Address [address] [facility] [address] [place] [address] Care Team Providers Care Parts Driver Name Role Phone Elyse Hobbs GIN Primary Care Provider [phone] Allergies Active Allergy Reactions Criticality Noted Date Comments Oxycodone-Acetaminophen Itching 02/01/2025 Shellfish Allergy Itching 02/01/2025 Medications amLODIPine (Norvasc) 5 MG tabletIndicati ons:Hypertensi on, unspecified type Take 1 tablet (5 mg) [...] by mouth Once per day. 30 tablet 2 5 4:17 PM EST 04/05/20 25 026 Active fluticasone (Flonase) 50 MCG/ACT nasal spray Administer 1-2 sprays into each nostril Once per day. Shake gently. Before first use, prime pump. After use, clean tip and replace cap. 16 g 5 4:17 PM EST 04/05/20 25 026 Active EPINEPHrine (Epipen) 0.3 MG/0.3ML injection syringe Inject 0.3 mL (0.3 mg) as directed 1 (one) time. use as directed for allergic reaction and then call 911 1 each 2 5 4:17 PM EST 12/15/20 25 Active escitalopram (Lexapro) 10 MG tablet Take 1 tablet (10 mg) by mouth Once per day. 30 tablet 1 2:01 PM EST 03/03/20 25 025 Discontinued(Re order (will not trigger notification to Pharmacy)) Active Problems Problem Noted Date Diagnosed Date Stage 3a chronic kidney disease (CMS/HCC) 2024 Assessment & Plan (04/05/2025 12:19 PM EST): Orders: Lipid Panel, Standard; Future Anxiety 04/05/2025 Assessment & Plan (04/05/2025 12:19 PM EST): Seasonal allergic rhinitis 04/05/2025 Assessment & Plan (04/05/2025 12:19 PM EST): Allergy to peanuts 04/05/2025 Assessment & Plan (04/05/2025 12:19 PM EST): Orders: Referral to Allergy; Future Chronic pain of right knee 04/05/2025 Assessment & Plan (04/05/2025 12:19 PM EST): Orders: Referral to Physical Therapy; Future Referral to Orthopaedic Surgery; Future Other fatigue 02/01/2025 Assessment & Plan (02/01/2025 [...] Encounters Date Type Department Care Team Description 04/05/2025 11:15 AM EST Office Visit [address] [address] Elyse Hobbs NP Stage 3a chronic kidney disease (CMS/HCC) (HCC) (Primary Dx); Anxiety; Seasonal allergic rhinitis due to other allergic trigger; Allergy to peanuts; Chronic pain of right knee 04/05/2025 Travel 04/02/[address] [address] Elyse Hobbs NP CHARTPREP 03/31/2025 Orders Only GENERIC EXTERNAL DATA DEPARTMENT Provider, Generic External Data 03/29/2025 Travel 03/03/[address] [address] Elyse Hobbs NP Med Refill 02/01/2025 9:45 AM EDT Office Visit [address] [address] Elyse Hobbs NP Colon cancer screening (Primary [...] fatigue; Dietary counseling; Exercise counseling 02/01/[address] [address] Elyse Hobbs NP 02/01/2025 Travel 01/25/2025 Patient Outreach [facility] [address] [place], [place] [phone] Elyse Hobbs NP Pre-visit Planning ([facility] unable to reach [facility] ) from Last 3 Months Social History Tobacco [...] with others, in a hotel, in a senior care, living outside on the street, on a [...] Mass Index 39.2 04/05/2025 11:22 AM EST Plan of Treatment Health Maintenance Due Date Last Done Comments [...] 09/27/2009 HPV/Cotest 09/27/2009 Mammogram 2019 COVID-19 Vaccine (1 - 2024-2 6 season) 2024 Influenza Vaccine (#1) 2024 Depression Monitoring 08/02/2025 02/01/2025 , 02/01/2025 Alcohol/Substance Use Screening 02/01/2026 02/01/2025 SDOH Screening 02/01/2026 02/01/2025 Diabetes: Hemoglobin A1C 02/02/2026 02/02/2025 Disability Screening 03/29/2026 03/29/2025 Tobacco Screening 04/05/2026 04/05/2025 Zoster Vaccines (1 of 2) 09/27/2029 RSV [...] Procedure Name Priority Date/Time Associated Diagnosis Comments US RENAL COMPLETE Routine 04/05/2025 4:0 8 PM EST BASIC METABOLIC PANEL Routine 03/31/2025 8:19 AM EST CREATININE CLEARANCE Routine 03/31/2025 7:21 AM EST HEPATITIS C AB W/REFL TO HCV RNA, [...] type from Last 3 Months Results * US Renal Complete (04/05/2025 4:08 PM EST) Anatomical Region Laterality Modality Kidney Ultrasound 04/05/2025 4:08 PM EST Narrative 04/05/2025 4:09 PM EST [address] [address] Ultrasound Report Signed Patient: Shavon Brooks MR#: [id number] 13 : 1980 Acct:[id number] Age/Sex: 44 / F ADM Date: 04/05/25 Loc: . Attending Dr: Steffen Alexandre MD Ordering Physician: Steffen Alexandre MD Date of Service: 04/05/25 Procedure(s): US renal BI Accession Number(s): [id number] cc: Steffen Alexandre MD; Elyse Hobbs NP Reason for Exam: N18.9 - Chronic kidney disease, unspecified CLINICAL HISTORY: N18.9 - Chronic kidney disease, unspecified Ultrasound kidneys. COMPARISON: None provided. Technique: Real time sonographic imaging, including color-flow imaging, was performed by the director of conservation. Multiple telephone services sales representative static images were saved for review. FINDINGS: Right kidney: Severe right-sided hydronephrosis with associated cortical thinning. No calculus or focal parenchymal abnormality identified. Right kidney size: 12.8 x 7.1 x 4.6 cm Left kidney: Cortical medullary differentiation is maintained. No calculus or focal parenchymal abnormality identified. No hydronephrosis. Left kidney size: 11.8 x 5.8 x 4.6 cm The urinary bladder contracted. Left ureteral jet identified. Right ureteral jet was not identified. IMPRESSION: 1. Severe right hydronephrosis with associated cortical thinning. Right ureteral jet was not identified. 2. Unremarkable appearance of the left kidney. This document has been electronically signed by: Vel Lopez MD on 04/05/2025 16:08:35 Dictated By: Vel Lopez MD Signed By: <Electronically signed by Vel Lopez MD in OV> 04/05/25 1609 DD/ 1608 TD/TT: 04/05/25 1608 Concrete Technician: Procedure Note Donotuseinterpreter, Image - 04/05/2025 [place] [address] Ultrasound Report Signed Patient: Shavon Brooks#: [id number] 13 : 1980Acct:[id number] Age/Sex: 44 / FADM Date: 04/05/25 Loc: HO. Attending Dr: Steffen Alexandre MD Ordering Physician: Steffen Alexandre MD Date of Service: 04/05/25 Procedure(s): US renal BI Accession Number(s): [id number] cc: Steffen Alexandre MD; Elyse Hobbs NP Reason for Exam: N18.9 - Chronic kidney disease, unspecified CLINICAL HISTORY: N18.9 - Chronic kidney disease, unspecified Ultrasound kidneys. COMPARISON: None provided. Technique: Real time sonographic imaging, including color-flow imaging, was performed by the director of conservation. Multiple telephone services sales representative static images were saved for review. FINDINGS: Right kidney: Severe right-sided hydronephrosis with associated cortical thinning. No calculus or focal parenchymal abnormality identified. Right kidney size: 12.8 x 7.1 x 4.6 cm Left kidney: Cortical medullary differentiation is maintained. No calculus or focal parenchymal abnormality identified. No hydronephrosis. Left kidney size: 11.8 x 5.8 x 4.6 cm The urinary bladder contracted. Left ureteral jet identified. Right ureteral jet was not identified. IMPRESSION: 1. Severe right hydronephrosis with associated cortical thinning. Right ureteral jet was not identified. 2. Unremarkable appearance of the left kidney. This document has been electronically signed by: Vel Lopez MD on 04/05/2025 16:08:35 Dictated By: Vel Lopez MD Signed By: <Electronically signed by Vel Lopez MD in OV> 04/05/25 1609 DD/ 1608 TD/TT: 04/05/25 1608 Concrete Technician: us [facility] External Provider IMG US PROCEDURES Final Result * (ABNORMAL) Basic Metabolic Panel (03/31/2025 8:19 AM EST) Sodium 140 135 - 145 mmol/L [facility] Potassium 4.2 3.3 - 5.1 mmol/L [facility] Chloride 107 96 - 108 mmol/L [facility] Carbon Dioxide 25 22 - 29 mmol/L [facility] Anion Gap 12 12 - 20 [facility] Urea Nitrogen (BUN) 17(H) 9 - 16 mg/dL [facility] Creatinine, Serum 1.04 0.5 - 1.4 mg/dL [facility] Estimated Glomerular Filt Rate 57 [facility] Comment:Chronic Kidney Disea se: Estimated GFR < 60 mL/min/1.84h0Tersru Kidney Disease: Estimated GFR < 15 mL/min/1.73m2 Glucose 91 60 - 115 mg/dL [facility] Calcium 9.6 8.4 - 10.2 mg/dL [facility] 03/31/2025 8:19 AM EST 03/31/2025 8:19 AM EST Generic External Data Provider LAB BLOOD ORDERAB LES Final Result Performing Organization Address [facility] Co de Phone Number [facility] [address] [place] [address] [phone] * Creatinine Clearance (03/31/2025 7:21 AM EST) Pathologist [facility] Creatinine, Serum 1.04 0.5 - 1.4 mg/dL [facility] Creatinine Clearance 90.7 85 - 125 mL/min [facility] Creatinine, 24 Hour Urine 1.4 1.0 - 2.0 G/Day [facility] Creatinine, Urine 123.52 [facility] Urine Total Volume 24 Hour 1,100 mL [facility] 03/31/2025 7:21 AM EST 03/31/2025 8:27 AM EST Narrative [facility] - 03/31/2025 12:16 PM EST [id number] us Generic External Data Provider LAB BLOOD ORDERAB LES Final Result Performing Organization Address [facility] Co de Phone Number [facility] [address] [place] [phone] * (ABNORMAL) CBC auto differential (02/02/2025 8:15 AM EDT) White Blood Count 9.1 4.8 - 10.8 X10*3/uL [facility] Red Blood Count 4.80 4.20 - 5.50 X10*6/uL [facility] Hemoglobin 13.7 12.0 - 16.0 g/dl [facility] Hematocrit 41.9 37.0 - 47.0 % [facility] Mean Corpuscular Volume 87.3 80.0 - 98.0 fL [facility] Mean Corpuscular Hemoglobin 28.5 27.0 - 33.0 pg [facility] Mean Corpuscular HGB Conc 32.7 31.0 - 35.0 g/dl [facility] Red Cell Distribution Width 13.4 11.0 - 16.0 % [facility] Platelet Count 288 160 - 400 X10*3/uL [facility] Mean Platelet Volume 10.1 9.4 - 12.3 fL [facility] Neutrophils Percent Auto 46.7 45 - 73 % [facility] Imm Gran Pct Auto 0.4 0.0 - 0.4 % [facility] Lymphocytes Percent Auto 43.7(H) 20 - 40 % [facility] Monocytes Percent Auto 4.5 2 - 11 % [facility] Eosinophils Percent Auto 4.4(H) 0 - 4 % [facility] Basophils Percent Auto 0.3 0 - 2 % [facility] NRBC Pct Auto 0.0 0.0 - 0.2 /100WBC [facility] Neutrophils Absolute Auto 4.2 2.0 - 8.3 x10*3/uL [facility] Imm Gran Abs Auto 0.04(H) 0.00 - 0.03 X10*3/uL [facility] Lymphocytes Absolute Auto 4.0 1.2 - 4.9 X10*3/uL [facility] Monocytes Absolute Auto 0.4 0.1 - 1.2 X10*3/uL [facility] Eosinophils Absolute Auto 0.4 0.0 - 0.4 X10*3/uL [facility] Basophils Absolute Auto 0.0 0.0 - 0.2 X10*3/uL [facility] NRBC Abs Auto 0.000 0.0 - 0.012 X10*3/uL [facility] Blood Venous blood specimen / Unknown 02/02/2025 8:15 AM EDT 02/02/2025 11:25 AM EDT us Elyse Hobbs POULTRY CUTTER LAB BLOOD ORDERABLES Final Resul t Performing Organization Address City/[facility]/ZIP Co de Phone Number [facility] [address] [place] [phone] * Hepatitis C Antibody with Reflex to HCV, RNA, Quantitative, Real-Time PCR (02/02/2025 8:15 AM EDT) Hepatitis C Antibody Nonreactive Nonreactive [facility] Comment:Antibodies to HCV no t detected; does not exclude early acuteHCV infection. Blood Venous blood specimen / Unknown 02/02/2025 8:15 AM EDT 02/02/2025 11:25 AM EDT us Elyse Hobbs NP LAB BLOOD ORDERABLES Final Resul t Performing Organization Address [facility] Co de Phone Number [facility] [address] [place] [phone] * HIV-1/2 Antigen and Antibodies, Fourth Generation, with Reflexes (02/02/2025 8:15 AM EDT) HIV AB/AG Nonreactive Nonreactive [facility] Comment:HIV-1 p24 Ag and/or HIV-1/HIV-2 Ab not detected.A test result that is nonreactive does not exclude thepossibility of exposure to or infection with HIV-1 and/orHIV-2. Nonreactive results in this assay for individualswith prior exposure to HIV-1 and/or HIV-2 may be due toantigen and antibody levels that are below the limit ofdetection of this assay.The [employer] HIV Ag/Ab Combo assay result andsupplemental assay results should be interpreted inconjunction with the patient's clinical presentation,history and other laboratory results. If the results areinconsistent with clinical evidence, additional testing issuggested to confirm the result. Blood Venous blood specimen / Unknown 02/02/2025 8:15 AM EDT 02/02/2025 11:25 AM EDT us Elyse Hobbs POULTRY CUTTER LAB BLOOD ORDERABLES Final Resul t Performing Organization Address [facility] Co de Phone Number [facility] [address] [place] [phone] [phone] * Hemoglobin A1c (02/02/2025 8:15 AM EDT) Hemoglobin A1c 5.7 <6.0 % [facility] Comment:Hemoglobin A1C Refer ence Range Adults: 4.8 - 6.0 % Non diabetic: < 6.0 % Goal: < 7.0 %Additional Action Suggested: > 8.0 %Note: Hemoglobin A1c results are invalid for patients with abnormal amounts of HbF. Blood transfusions may impact the HbA1c concentration in the patient sample. Estimated Average Glucose 117 mg/dL [facility] Comment:eAG = Estimated ave rage glucose which is %A1C expressed asaverage glucose, using the formula of the V8W-NdoatleMmyqnom Glucose study (ADAG), Diabetes Care, Vol.31,#8,Nov. 2007 Blood Venous blood specimen / Unknown 02/02/2025 8:15 AM EDT 02/02/2025 11:25 AM EDT us Elyse Hobbs POULTRY CUTTER LAB BLOOD ORDERABLES Final Resul t Performing Organization Address [facility] Co de Phone Number [facility] [address] [place] [phone] * (ABNORMAL) Comprehensive Metabolic Panel (02/02/2025 8:15 AM EDT) Sodium 141 135 - 145 mmol/L [facility] Potassium 4.1 3.3 - 5.1 mmol/L [facility] Chloride 105 96 - 108 mmol/L [facility] Carbon Dioxide 27 22 - 29 mmol/L [facility] Anion Gap 13 12 - 20 [facility] Urea Nitrogen (BUN) 18(H) 9 - 16 mg/dL [facility] Creatinine, Serum 1.10 0.5 - 1.4 mg/dL [facility] Estimated Glomerular Filt Rate 54 [facility] Comment:Chronic Kidney Disea se: Estimated GFR < 60 mL/min/1.23u8Zldudy Kidney Disease: Estimated GFR < 15 mL/min/1.73m2 Glucose 85 60 - 115 mg/dL [facility] Calcium 9.8 8.4 - 10.2 mg/dL [facility] Bilirubin, Total 0.4 0.0 - 1.0 mg/dL [facility] Aspartate Amino Transferase 26 5 - 31 U/L [facility] Alanine Aminotransferase 18 0 - 31 U/L [facility] Total Protein 7.9 6.5 - 8.0 g/dL [facility] Albumin Level 4.3 3.5 - 5.0 g/dL [facility] Alkaline Phosphatase 110 39 - 117 U/L [facility] Blood Venous blood specimen / Unknown 02/02/2025 8:15 AM EDT 02/02/2025 11:25 AM EDT Elyse Hobbs NP LAB BLOOD ORDERABLES Final Resul t [facility] [address] [place] [phone] from Last 3 Months Insurance [facility] C3 Care Teams Parts Driver Relationship Specialty Start Date End Date Elyse Hobbs NP [address] [place] [phone] PCP - General Family Medicine 02/01/25
--- OUTSIDE RECORDS SUMMARY | 2025-04-06 12:15 | XMS_ITS | Encounter Summary ---
Author Organization [employer] Address [address] [place] [address] [address] [place] [address] Care Team Providers Care Casting Repairer Name Role Phone Elyse Hobbs NP Primary Care Provider [phone] Reason for Visit * Reason Onset Date Comments CHARTPREP 04/02/2025 Encounter Details Date Type Department Care Team ([facility] st Contact Info) Description 04/02/2025 Telephone [facility] [address] [place], [place] [phone] Elyse Hobbs NP [address] [place] [address] CHARTPREP Social History Tobacco Use Types Packs/Day Years [...] with others, in a hotel, in a detention, living outside on the street, on a [...] AM EDT documented as of this encounter Miscellaneous Notes * Telephone Encounter - Helene Linn MA - 04/02/2025 3:02 PM EST Chart Prep Labs: done Images: not done Referrals: appointment pending BI mammo appointment [facility] 05/18/25 1:45 PM [facility] Nephrology notes on chart Vaccines due: Covid, Flu, Tdap, Hep B, and HPV Screenings: colonoscopy, mammogram, and pap smear,family planning,lipid panel Overdue care gaps: Not applicable documented in this encounter Plan of Treatment Not on file documented as of this encounter Visit Diagnoses Not on filedocumented in this encounter Additional Health Concerns Assessment Noted Time PHQ-9 Depression Total Score: 9 02/02/20 11:02 AM EDT documented as of this encounter Care Teams Casting Repairer Relationship Specialty Start Date End Date Elyse Hobbs NP [address] [place] [address] PCP - General Family Medicine 02/01/25 documented as of this encounter
== END ==
LOC: HO.NUCMED 10:01
PROVIDERS: PCP Nurse Practitioner Family; Visit Provider Internal Medicine Hypertension Specialist
DX: N18.9 Chronic kidney disease, unspecified (principal)
CPT/HCPCS: 78708; A9539; J1938

== ENCOUNTER → 2025-04-06 10:03 | Outpatient (BNV) | payer MEDICAID, SELFPAY | PROVIDERS: PCP Nurse Practitioner Family; Visit Provider Radiology Diagnostic Radiology | DX: N18.9 Chronic kidney disease, unspecified (principal) | CPT/HCPCS: 78708 ==

== ENCOUNTER 2025-04-08 10:39 | Outpatient (AMB) | payer MEDICAID, SELFPAY ==
--- OUTSIDE RECORDS SUMMARY | 2025-04-05 11:15 | XMS_ITS | Encounter Summary ---
Author Organization [employer] Address [address] [place] [address] [address] [place] [address] Care Team Providers Care Composition Molder Name Role Phone Elyse Hobbs NP Primary Care Provider [phone] Reason for Referral * Consultation (Routine) - Authorized Specialty Diagnoses / Procedures Referred By Juancho van Referred To Contact Orthopaedic Surgery Diagnoses Chronic pain of right knee Elyse Hobbs NP [address] [place] [address] Phone: tel: fax: [facility] [address] [place] [address] [place] [phone] Phone: tel: Referral ID Status Reason Start Date Expiration Date Visits Requested Visits Authorized [id number] Authorized Specialty Services Required 04/05/2026 6 6 * Consultation (Routine) - Closed Specialty Diagnoses / Procedures Referred By Juancho van Referred To Contact Physical Therapy Diagnoses Chronic pain of right knee Elyse Hobbs NP [address] [place] [address] Phone: tel: fax: [facility] Physical Therapy [address] [place] [address] Phone: tel: fax: Referral ID Status Reason Start Date Expiration Date V isits Requested Visits Authorized [id number] Closed Specialty Services Required 04/05/2025 04/05/2026 20 20 * Consultation (Routine) - Closed Specialty Diagnoses / Procedures Referred By Juancho van Referred To Contact Allergy Diagnoses Allergy to peanuts Elyse Hobbs NP [address] [place] [address] Phone: tel: fax: Ronald Powell MD [address] [place] [address] Drive [address] [place] [address] Phone: tel: fax: Referral ID Status Reason Start Date Expiration Date V isits Requested Visits Authorized [id number] Closed Specialty Services Required 04/05/2025 04/05/2026 12 12 Encounter Details Date Type Department Care Team ([facility] st Contact Info) Description 04/05/2025 11:15 AM EST Office Visit [facility] [address] [place] [address] Elyse Hobbs NP [address] [place] [address] Stage 3a chronic kidney disease (CMS/HCC) (HCC) [...] with others, in a hotel, in a usp, living outside on the street, on a [...] Chronic Kidney Disease: Estimated GFR < 60 mL/min/[id number] Kidney Disease: Estimated GFR < 15 mL/min/1.73m2 Glucose 03/31/2025 91 60 - 115 mg/dL Final Calcium 03/31/2025 9.6 8.4 - 10.2 mg/dL Final Assessment & Plan Stage 3a chronic kidney disease ([facility] ([facility]) Orders: Lipid Panel, Standard; Future Anxiety Seasonal allergic rhinitis due to other allergic trigger Allergy to peanuts Orders: Referral to Allergy; Future Chronic pain of right knee Orders: Referral to Physical Therapy; Future Referral to Orthopaedic Surgery; Future Assessment & Plan Stage 3a chronic kidney disease ([facility] ([facility]): - Stable chronic kidney disease. Need to [...] Advised strict avoidance of peanuts. Referral to fluoroscope operator placed. Chronic pain of right knee: - [...] allergy; avoid peanuts Appointments - Referral to fluoroscope operator - Referral to orthopedic knee specialist - [...] not improve. Next appointment(s): - Referral to fluoroscope operator - Referral to orthopedic knee specialist - Referral to physical therapy This note was drafted using Ambient (AI) technology. The patient/patient's guardian has been informed and has consented to the use of this technology: Yes Visit Conducted in: [place] Translation by: Patient is bilingual and declines translation services [1] Patient Active Problem List Diagnosis Other fatigue Class 3 severe obesity with serious comorbidity and body mass index (BMI) of 40.0 to 44.9 in adult ([facility]) Healthcare maintenance Breast cancer screening by mammogram Stage 3a chronic kidney disease ([facility]) ([facility]) Anxiety Seasonal allergic rhinitis Allergy to peanuts [...] Diagnoses Diagnosis Stage 3a chronic kidney disease ([facility]) (HCC)- Primary Anxiety Anxiety state, unspecified Seasonal allergic rhinitis due to other allergic trigger Allergy to peanuts Chronic pain of right knee documented in this encounter Additional Health Concerns Assessment Noted Time PHQ-9 Depression Total Score: 9 02/02/20 11:02 AM EDT documented as of this encounter Care Teams Composition Molder Relationship Specialty Start Date End Date Elyse Hobbs NP [address] [place] [id number] PCP - General Family Medicine 02/01/25 documented as of this encounter
[2025-04-08 10:56] VITALS: BP 128/86; PULSE 96; O2SAT 97; BMI 39.3
--- NOTE | 2025-04-08 10:56 | HO.NEPHOV_ITS ---
Vital Signs 04/08/25 10:56 Height 5 ft 4 in Weight 229 lb BMI 39.3 BP 128/86 Blood Pressure Location Lt brachial Position Sitting Pulse 96 Pulse Source Pulse Oximeter Pulse Oximetry (%) 97 Oxygen Delivery Method Room Air Intake Visit Reasons: 3-4 wk f/u w/labs Geographic Information Systems Analyst Required: No Geographic Information Systems Analyst Services: Geographic Information Systems Analyst Offered & Declined ( will translate ) Accompanied by: Spouse Allergies peanut Allergy (Unknown, Verified 04/08/25 10:59) Swelling seafood Allergy (Verified 04/08/25 10:58) Anaphylaxis acetaminophen (From Percocet) Adverse Reaction (Verified 04/08/25 10:58) Itching oxycodone (From Percocet) Adverse Reaction (Verified 04/08/25 10:58) Itching Medication List - Last Reconciled 04/08/25 by Steffen Alexandre MD amlodipine 5 mg PO DAILY escitalopram oxalate 10 mg PO DAILY lorazepam 0.5 mg PO DAILY PRN HPI Comments Details: The patient is a 44 year old woman referred for chronic kidney disease. She had abdominal surgery in [place] back in November of 2022. She underwent oophorectomy. Subsequently developed a surgical complication which included right hydronephrosis. Nephrostomy was placed. Acute kidney injury resolved. Ureter has been reimplanted. She had a follow-up renal scan in January of 2024 which revealed significantly delayed decreased renal function on the right side. Recent serum creatinine is 1.1 and has been referred for further renal evaluation. The patient's past medical history is also significant for hypertension, which is reportedly well-controlled with amlodipine, and a history of a bowel obstruction in February. The patient reports a recent weight loss of about 4 pounds. The patient denies any history of thyroid disease or diabetes. Review of systems is negative for urinary complaints such as difficulty with urination or hematuria. The patient also denies any cough or hemoptysis. All medical records from [place] for the last 2 years were reviewed. Geographic Information Systems Analyst service was used. [facility] Surgical History (Updated 03/11/25 @ 13:24 by Yahaira Gonzalez MA) History of intestinal surgery History of hysterectomy History of cholecystectomy History of appendectomy H/O shoulder surgery H/O knee surgery History of back surgery Family History (Updated 03/11/25 @ 13:22 by Yahaira Gonzalez MA) Maternal Grandmother Heart disease Hypertension Diabetes mellitus Paternal Grandmother Cancer Paternal Grandfather Cancer Maternal Grandfather Cancer Social History (Updated 03/11/25 @ 13:20 by Yahaira Gonzalez MA) Alcohol intake: never Patient Tobacco Use Status: Never used Tobacco Physical Exam Exam Exam: Physical Exam General: Awake. Comfortable. HENT: Neck supple. Mucosa moist. Pulmonary: Lungs aeration equal. No rales. Cardiology: Heart S1-S2 heard. No gallop. Abdomen: Soft. Non tender. Bowel sounds normal. Neurologic: No involuntary movements. No myoclonus. Extremities: No edema. No rash. Vital Signs: Last Vital Signs Pulse 96 04/08/25 10:56 BP 128/86 04/08/25 10:56 Pulse Ox 97 04/08/25 10:56 Oxygen Delivery Method Room Air 04/08/25 10:56 BMI result Body Mass Index 39.3 Results Reviewed Nephrology Results: Hgb, (12.0-16.0) 13.7 g/dl 02/02/25 WBC, (4.8-10.8) 9.1 X10*3/uL 02/02/25 Plt Count, (160-400) 288 X10*3/uL 02/02/25 Sodium, (135-145) 140 mmol/L 03/31/25 Potassium, (3.3-5.1) 4.2 mmol/L 03/31/25 Chloride, (96-108) 107 mmol/L 03/31/25 Carbon Dioxide, (22-29) 25 mmol/L 03/31/25 BUN, (9-16) 17 mg/dL H 03/31/25 Creatinine, (0.5-1.4) 1.04 mg/dL 03/31/25 Calcium, (8.4-10.2) 9.6 mg/dL 03/31/25 Urine Protein, (Neg-Trace) Trace mg/dL 03/30/25 Renal US 04/05/25 Assessment & Plan Assessment & Plan (1) CKD (chronic kidney disease): Code(s): N18.9 - Chronic kidney disease, unspecified Category: Medical (2) Hydronephrosis: Code(s): N13.30 - Unspecified hydronephrosis Category: Medical Plan Plan 1. Chronic Kidney Disease With Non-Functioning Right Kidney - The patient's left kidney is functioning well and compensating for the non- functioning right kidney, as indicated by a stable creatinine of 1.04 mg/dL and good blood pressure. - No changes will be made to her current medications - The patient reports producing very little urine, though her 24-hour urine collection showed a creatinine clearance of 90 mL/minute - She was encouraged to increase her daily water intake to help the kidneys flush. - The patient was advised to increase water intake to at least four bottles a day - She was instructed to avoid NSAIDs such as Aleve, Advil, and Motrin. - A follow-up visit is scheduled in six months, with a repeat blood test to monitor kidney function. 2. Right-Sided Abdominal Pain - The patient reports ongoing pain on her right side. - A referral will be placed for a Urology consultation to evaluate the pain. - Tylenol is recommended as an acceptable option for pain management. Orders: Orders Basic Metabolic Panel 6 Months N18.9 - Chronic kidney disease, unspecified Referrals Urology Referral N13.30 - Unspecified hydronephrosis, N18.9 - Chronic kidney disease, unspecified Coding Level of Care Code Est Pt Level 4 (41482) Diagnoses CKD (chronic kidney disease) N18.9 Hydronephrosis N13.30
--- OUTSIDE RECORDS SUMMARY | 2025-04-08 13:32 | XMS_ITS | Encounter Summary ---
Author Organization [employer] Address [address] [facility] [address] [place] [address] Care Team Providers Care Truck Body Builder Apprentice Name Role Phone Elyse Hobbs NP Primary Care Provider [phone] Reason for Visit * Reason Comments Med Refill Encounter Details Date Type Department Care Team ([facility] st Contact Info) Description 02/01/2025 Refill [facility] [address] [place], [place] [phone] Elyse Hobbs NP [address] [place] [address] Social History Tobacco Use Types Packs/Day Years [...] with others, in a hotel, in a long-term, living outside on the street, on a [...] Assessment Author Somewhat difficult 02/01/2025 11:02 AM Hleene Boyer MA * Over the last 2 [...] erent things 3 02/01/2025 11:01 AM Helene Quionnez MA Trouble relaxing 2 02/01/2025 11:01 AM [...] documented as of this encounter Care Teams Truck Body Builder Apprentice Relationship Specialty Start Date End Date Elyse Hobbs NP [address] [place] [address] PCP - General Family Medicine 02/01/25 documented as of this encounter
--- OUTSIDE RECORDS SUMMARY | 2025-04-08 13:32 | XMS_ITS | Clinical Summary ---
Author Organization [employer] Address [address] [facility] [address] [place] [address] Care Team Providers Care Senior Market Intelligence Consultant Name Role Phone Elyse Hobbs GIN Primary Care Provider [phone] Allergies Active Allergy Reactions Criticality Noted Date [...] Description 04/05/2025 11:15 AM EST Office Visit [address] [address] Elyse Hobbs NP Stage 3a chronic kidney disease (CMS/HCC) (HCC) (Primary Dx); Anxiety; Seasonal allergic rhinitis due to other allergic trigger; Allergy to peanuts; Chronic pain of right knee 04/05/2025 Travel 04/02/[address] [address] Elyse Hobbs NP CHARTPREP 03/31/2025 Orders Only GENERIC EXTERNAL DATA DEPARTMENT Provider, Generic External Data 03/29/2025 Travel 03/03/[address] [address] Elyse Hobbs NP Med Refill 02/01/2025 9:45 AM EDT Office Visit [address] [address] Elyse Hobbs NP Colon cancer screening (Primary [...] fatigue; Dietary counseling; Exercise counseling 02/01/[address] [address] Elyse Hobbs NP 02/01/2025 Travel 01/25/2025 Patient Outreach [facility] [address] [place], [place] [phone] Elyse Hobbs NP Pre-visit Planning ([facility] unable to reach [facility] ) from Last 3 Months Social History [...] with others, in a hotel, in a fpc, living outside on the street, on a [...] Procedure Name Priority Date/Time Associated Diagnosis Comments NM KIDNEY FLOW/FUNCTION W PHARMACOLOGICAL INTERVENTION Routine 04/06/2025 10:29 AM EST US RENAL COMPLETE Routine 04/05/2025 4:0 8 [...] type from Last 3 Months Results * NM Kidney Flow/Function w/ Pharmacological Intervention (04/06/2025 10:29 AM EST) Anatomical Region Laterality Modality Body Nuclear Medicine 04/06/2025 10:2 9 AM EST Narrative 04/06/2025 12:56 PM EST [address] [address] Nuclear Medicine Report Signed Patient: Shavon Brooks MR#: [id number] 13 : 1980 Acct:[id number] Age/Sex: 44 / F ADM Date: 04/06/25 Loc: [facility] Attending Dr: Steffen Alexandre MD Ordering Physician: Steffen Alexandre MD Date of Service: 04/06/25 Procedure(s): NM renal flow w pharm int Accession Number(s): [id number] cc: Steffen Alexandre MD; Elyse Hobbs NP Reason for Exam: N18.9 - Chronic kidney disease, unspecified EXAMINATION: NM KIDNEY FLOW FUNCTION WITH RX HISTORY: N18.9 - Chronic kidney disease, unspecified. TECHNIQUE: A renogram and renal scan were performed following the intravenous administration of 10 mCi technetium 99m-DTPA. The patient received 40 mg IV Lasix approximately 30 minutes after injection of the radiopharmaceutical. COMPARISON: Comparison is made with the prior outside examination from [place] dated 02/03/2024. FINDINGS: There is normal blood flow to the left kidney. No activity is seen in the right renal fossa on blood flow images. There is normal uptake of the radiopharmaceutical by the left kidney, and normal excretion into the collecting system. There is washout of the left collecting system after Lasix administration with a half-life of 28 minutes. No significant uptake or excretion of the radiopharmaceutical is seen on the right. NM/NM renal flow w pharm int IMPRESSION: Normally functioning left kidney. There is no uptake or excretion of the radiopharmaceutical on the right, consistent with a nonfunctioning kidney. Electronically signed by: Sonido Clements MD 04/06/2025 12:53 PM EST Dictated By: Sonido Clements MD Signed By: <Electronically signed by Sonido Clements MD in OV> 04/06/25 1253 DD/ 1029 TD/TT: 04/06/25 1215 Dealer Card Room: Procedure Note Donotuseinterpreter, Image - 04/06/[address] [address] Nuclear Medicine Report Signed Patient: Todd Brooks#: [id number] 13 : 1980Acct:[id number] Age/Sex: 44 / FADM Date: 04/06/25 Loc: [facility] Attending Dr: Steffen Alexandre MD Ordering Physician: Steffen Alexandre MD Date of Service: 04/06/25 Procedure(s): NM renal flow w pharm int Accession Number(s): [id number] cc: Steffen Alexandre MD; Elyse Hobbs NP Reason for Exam: N18.9 - Chronic kidney disease, unspecified EXAMINATION: NM KIDNEY FLOW FUNCTION WITH RX HISTORY: N18.9 - Chronic kidney disease, unspecified. TECHNIQUE: A renogram and renal scan were performed following the intravenous administration of 10 mCi technetium 99m-DTPA. The patient received 40 mg IV Lasix approximately 30 minutes after injection of the radiopharmaceutical. COMPARISON: Comparison is made with the prior outside examination from [place] dated 02/03/2024. FINDINGS: There is normal blood flow to the left kidney. No activity is seen in the right renal fossa on blood flow images. There is normal uptake of the radiopharmaceutical by the left kidney, and normal excretion into the collecting system. There is washout of the left collecting system after Lasix administration with a half-life of 28 minutes. No significant uptake or excretion of the radiopharmaceutical is seen on the right. NM/NM renal flow w pharm int IMPRESSION: Normally functioning left kidney. There is no uptake or excretion of the radiopharmaceutical on the right, consistent with a nonfunctioning kidney. Electronically signed by: Sonido Clements MD 04/06/2025 12:53 PM [facility] Dictated By: Sonido Clements MD Signed By: <Electronically signed by Sonido Clements MD in OV> 04/06/25 1253 DD/ 1029 TD/TT: 04/06/25 1215 Dealer Card Room: [facility] External Provider IMG NM PROCEDURES Edited Result - Final * US Renal Complete (04/05/2025 4:08 PM EST) Anatomical Region Laterality Modality Kidney Ultrasound 04/05/2025 4:08 PM EST Narrative 04/05/2025 4:09 PM EST [address] [address] Ultrasound Report Signed Patient: Shavon Brooks MR#: [id number] 13 : 1980 Acct:[id number] Age/Sex: 44 / F ADM Date: 04/05/25 Loc: HO.US Attending Dr: Steffen Alexandre MD Ordering Physician: Steffen Alexandre MD Date of Service: 04/05/25 Procedure(s): US renal BI Accession Number(s): [id number] cc: Steffen Alexandre MD; Elyse Hobbs NP Reason for Exam: N18.9 - Chronic kidney disease, unspecified CLINICAL HISTORY: N18.9 - Chronic kidney disease, unspecified Ultrasound kidneys. COMPARISON: None provided. Technique: Real time sonographic imaging, including color-flow imaging, was performed by the stock drier tender. Multiple employment representative static images were saved for review. [...] by Vel Lopez MD in OV> 04/05/25 160 DD/ 07 TD/TT: 04/05/251607 Dealer Card Room: Procedure Note Donotzayrater, Image - 04/05/2025 [place] [address] Ultrasound Report Signed Patient: Todd Brooks#: [id number] 13 : 1980Acct:[id number] Age/Sex: 44 / FADM Date: 04/05/25 Loc: HO.US Attending Dr: Steffen Alexandre MD Ordering Physician: Steffen Alexandre MD Date of Service: 04/05/25 Procedure(s): US renal BI Accession Number(s): [id number] cc: Steffen Alexandre MD; Elyse Hobbs NP Reason for Exam: N18.9 - Chronic kidney disease, unspecified CLINICAL HISTORY: N18.9 - Chronic kidney disease, unspecified Ultrasound kidneys. COMPARISON: None provided. Technique: Real time sonographic imaging, including color-flow imaging, was performed by the stock drier tender. Multiple employment representative static images were saved for review. [...] by Vel Lopez MD in OV> 04/05/25 160 DD/ 07 TD/TT: 12/15/25 1608 Dealer Card Room: us [facility] External Provider IMG US PROCEDURES Final Result * (ABNORMAL) Basic Metabolic Panel (03/31/2025 8:19 AM EST) Sodium 140 135 - 145 mmol/L [facility] Potassium 4.2 3.3 - 5.1 mmol/L [facility] Chloride 107 96 - 108 mmol/L [facility] Carbon Dioxide 25 22 - 29 mmol/L [facility] Anion Gap 12 12 - 20 [facility] Urea Nitrogen (BUN) 17(H) 9 - 16 mg/dL [facility] Creatinine, Serum 1.04 0.5 - 1.4 mg/dL [facility] Estimated Glomerular Filt Rate 57 [facility] Comment:Chronic Kidney Disea se: Estimated GFR < 60 mL/min/1.94p2Ahoewq Kidney Disease: Estimated GFR < 15 mL/min/1.73m2 Glucose 91 60 - 115 mg/dL [facility] Calcium 9.6 8.4 - 10.2 mg/dL [facility] 03/31/2025 8:19 AM EST 03/31/2025 8:19 AM EST Generic External Data Provider LAB BLOOD ORDERAB LES Final Result [facility] [address] [place] [phone] * Creatinine Clearance (03/31/2025 7:21 AM EST) Creatinine, Serum 1.04 0.5 - 1.4 mg/dL [facility] Creatinine Clearance 90.7 85 - 125 mL/min [facility] Creatinine, 24 Hour Urine 1.4 1.0 - 2.0 G/Day [facility] Creatinine, Urine 123.52 [facility] Urine Total Volume 24 Hour 1,100 mL [facility] 03/31/2025 7:21 AM EST 03/31/2025 8:27 AM EST Narrative [facility] - 03/31/2025 12:16 PM EST [id number] us Generic External Data Provider LAB BLOOD ORDERAB LES Final Result [facility] [address] [place] [address] [phone] * (ABNORMAL) CBC auto differential (02/02/2025 8:15 AM EDT) White Blood Count 9.1 4.8 - 10.8 X10*3/uL [facility] Red Blood Count 4.80 4.20 - 5.50 X10*6/uL [facility] Hemoglobin 13.7 12.0 - 16.0 g/dl [facility] Hematocrit 41.9 37.0 - 47.0 % [facility] Mean Corpuscular Volume 87.3 80.0 - 98.0 fL [facility] Mean Corpuscular Hemoglobin 28.5 27.0 - 33.0 pg [facility] Mean Corpuscular HGB Conc 32.7 31.0 - 35.0 g/dl [facility] Red Cell Distribution Width 13.4 11.0 - 16.0 % [facility] Platelet Count 288 160 - 400 X10*3/uL [facility] Mean Platelet Volume 10.1 9.4 - 12.3 fL [facility] Neutrophils Percent Auto 46.7 45 - 73 % [facility] Imm Gran Pct Auto 0.4 0.0 - 0.4 % [facility] Lymphocytes Percent Auto 43.7(H) 20 - 40 % [facility] Monocytes Percent Auto 4.5 2 - 11 % [facility] Eosinophils Percent Auto 4.4(H) 0 - 4 % [facility] Basophils Percent Auto 0.3 0 - 2 % [facility] NRBC Pct Auto 0.0 0.0 - 0.2 /100WBC [facility] Neutrophils Absolute Auto 4.2 2.0 - 8.3 x10*3/uL [facility] Imm Gran Abs Auto 0.04(H) 0.00 - 0.03 X10*3/uL [facility] Lymphocytes Absolute Auto 4.0 1.2 - 4.9 X10*3/uL [facility] Monocytes Absolute Auto 0.4 0.1 - 1.2 X10*3/uL [facility] Eosinophils Absolute Auto 0.4 0.0 - 0.4 X10*3/uL [facility] Basophils Absolute Auto 0.0 0.0 - 0.2 X10*3/uL [facility] NRBC Abs Auto 0.000 0.0 - 0.012 X10*3/uL [facility] Blood Venous blood specimen / Unknown 02/02/2025 8:15 AM EDT 02/02/2025 11:25 AM EDT us Elyse Hobbs NP LAB BLOOD ORDERABLES Final Resul t Performing Organization Address [facility] Co de Phone Number [facility] [address] [place] [phone] * Hepatitis C Antibody with Reflex to HCV, RNA, Quantitative, Real-Time PCR (02/02/2025 8:15 AM EDT) Hepatitis C Antibody Nonreactive Nonreactive [facility] Comment:Antibodies to HCV no t detected; does not exclude early acuteHCV infection. Blood Venous blood specimen / Unknown 02/02/2025 8:15 AM EDT 02/02/2025 11:25 AM EDT Elyse Hobbs NP LAB BLOOD ORDERABLES Final Resul t Performing Organization Address [facility] Co de Phone Number [facility] [address] [place] [phone] * HIV-1/2 Antigen and Antibodies, Fourth Generation, with Reflexes (02/02/2025 8:15 AM EDT) HIV AB/AG Nonreactive Nonreactive [facility] Comment:HIV-1 p24 Ag and/or HIV-1/HIV-2 Ab not detected.A test result that is nonreactive does not exclude thepossibility of exposure to or infection with HIV-1 and/orHIV-2. Nonreactive results in this assay for individualswith prior exposure to HIV-1 and/or HIV-2 may be due toantigen and antibody levels that are below the limit ofdetection of this assay.The [employer] HIV Ag/Ab Combo assay result andsupplemental assay results should be interpreted inconjunction with the patient's clinical presentation,history and other laboratory results. If the results areinconsistent with clinical evidence, additional testing issuggested to confirm the result. Blood Venous blood specimen / Unknown 02/02/2025 8:15 AM EDT 02/02/2025 11:25 AM EDT us Elyse Hobbs NP LAB BLOOD ORDERABLES Final Resul t [facility] [address] [place] [phone] * Hemoglobin A1c (02/02/2025 8:15 AM EDT) Hemoglobin A1c 5.7 <6.0 % [facility] Comment:Hemoglobin A1C Refer ence Range Adults: 4.8 - 6.0 % Non diabetic: < 6.0 % Goal: < 7.0 %Additional Action Suggested: > 8.0 %Note: Hemoglobin A1c results are invalid for patients with abnormal amounts of HbF. Blood transfusions may impact the HbA1c concentration in the patient sample. Estimated Average Glucose 117 mg/dL [facility] Comment:eAG = Estimated ave rage glucose which is %A1C expressed asaverage glucose, using the formula of the C8E-HmkidnoWmagxeh Glucose study (ADAG), Diabetes Care, Vol.31,#8,Nov. 2007 Blood Venous blood specimen / Unknown 02/02/2025 8:15 AM EDT 02/02/2025 11:25 AM EDT us Elyse Graef SOCIAL SERVICE DIRECTOR LAB BLOOD ORDERABLES Final Resul t Performing Organization Address [facility]/ZIP Co de Phone Number [facility] [address] [place] [address] [phone] * (ABNORMAL) Comprehensive Metabolic Panel (02/02/2025 8:15 AM EDT) Sodium 141 135 - 145 mmol/L [facility] Potassium 4.1 3.3 - 5.1 mmol/L [facility] Chloride 105 96 - 108 mmol/L [facility] Carbon Dioxide 27 22 - 29 mmol/L [facility] Anion Gap 13 12 - 20 [facility] Urea Nitrogen (BUN) 18(H) 9 - 16 mg/dL [facility] Creatinine, Serum 1.10 0.5 - 1.4 mg/dL [facility] Estimated Glomerular Filt Rate 54 [facility] Comment:Chronic Kidney Disea se: Estimated GFR < 60 mL/min/1.88t9Bzueae Kidney Disease: Estimated GFR < 15 mL/min/1.73m2 Glucose 85 60 - 115 mg/dL [facility] Calcium 9.8 8.4 - 10.2 mg/dL [facility] Bilirubin, Total 0.4 0.0 - 1.0 mg/dL [facility] Aspartate Amino Transferase 26 5 - 31 U/L [facility] Alanine Aminotransferase 18 0 - 31 U/L [facility] Total Protein 7.9 6.5 - 8.0 g/dL [facility] Albumin Level 4.3 3.5 - 5.0 g/dL [facility] Alkaline Phosphatase 110 39 - 117 U/L [facility] Blood Venous blood specimen / Unknown 02/02/2025 8:15 AM EDT 02/02/2025 11:25 AM EDT us Elyse Hobbs SOCIAL SERVICE DIRECTOR LAB BLOOD ORDERABLES Final Resul t Performing Organization Address City/[facility]/ZIP Co de Phone Number [facility] [address] [place] [address] [phone] from Last 3 Months Insurance [facility] C3 Care Teams Senior Market Intelligence Consultant Relationship Specialty Start Date End Date Elyse Hobbs NP [address] [place] [address] PCP - General Family Medicine 02/01/25
--- OUTSIDE RECORDS SUMMARY | 2025-04-08 13:32 | XMS_ITS | Encounter Summary ---
Author Organization [employer] Address [address] [facility] [address] [place] [address] Care Team Providers Care Residential Subcontractor Name Role Phone Elyse Hobbs GIN Primary Care Provider [phone] Encounter Details Date Type Department Care Team [...] with others, in a hotel, in a fdc, living outside on the street, on a [...] documented as of this encounter Care Teams Residential Subcontractor Relationship Specialty Start Date End Date Elyse Hobbs NP [address] [place] [address] PCP - General Family Medicine 02/01/25 documented as of this encounter
== END 2025-04-08 11:11 | disposition home or self-care (01) ==
LOC: HO.HKA 10:39
PROVIDERS: PCP Nurse Practitioner Family; Visit Provider Internal Medicine Hypertension Specialist
DX: N18.9 Chronic kidney disease, unspecified (principal); N13.30 Unspecified hydronephrosis
CPT/HCPCS: 99214

== ENCOUNTER → 2025-04-08 10:39 | Outpatient (BNVA) | payer MEDICAID, SELFPAY | PROVIDERS: PCP Nurse Practitioner Family; Visit Provider Internal Medicine Hypertension Specialist | DX: I12.9 Hypertensive chronic kidney disease with stage 1 through stage 4 chronic kidney disease, or unspecified chronic kidney disease (principal); N18.9 Chronic kidney disease, unspecified; N13.30 Unspecified hydronephrosis; R10.9 Unspecified abdominal pain | CPT/HCPCS: 99212 ==